=== PATIENT | female | born 1975 | race Two or more races ===

== ENCOUNTER 2022-10-04 09:52 | Outpatient (AMB) | payer OTHER, SELFPAY ==
[2022-10-04 10:09] VITALS: BP 110/72; PULSE 58; O2SAT 98; BMI 31.3
--- NOTE | 2022-10-04 10:09 | MHC.OFFVIS ---
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 Pt states she has seen a neurologist before. Official Court Reporter Required: No Allergies azithromycin Allergy (Unknown, Verified 10/04/22 10:12) Rash Medication List - Last Reconciled 10/04/22 by AGUEDA Florez cyanocobalamin (vitamin B-12) (Vitamin B-12) 2,500 mcg sublingual DAILY levonorgestrel (Mirena) intrauterine magnesium oxide 400 mg PO DAILY paroxetine HCl 10 mg PO QAM riboflavin (vitamin B2) 400 mg PO DAILY HPI HPI Comments History of Present Illness Details Right-handed 47-yr-old female presents for new pt evaluation of headache disorder, specifically migraine w/o aura. She has had headaches for about 9 years. For a time the migraine was constant, now frequent but not constant. She previously saw Dr Pisano, neurology, but has not seen him in years. Headache questionnaire: Preceding causes? None Previous work-up? MRI- after onset of migarine- normal per pt. Has had normal eye exams. Typical headache characteristics: Prodrome symptoms? None Aura? None Location, quality, characteristics? Starts behind her left eye, and then moves into the temples and back of the head. Pain can be throbbing. Her enck can be tight- makes her head feel like a bowling ball . Pain intensity? dull-severe Associated symptoms? photophobia, phonophobia, nausea, rarely vomiting, dizziness, brain fog, fatigue, ears feel blocked, triggers anxiety. Focal weakness, Parethesias, Autonomic s/s? congestion Postdrome? Unsure- almost always feels foggy and fatigued Triggers? stress, Any positional, valsalva, exertional, sexual activity triggers? none Menstrual triggers? none- has an IUD Time of day? Sometimes can wake up with headache Duration? A few days Frequency? 4 attacks in the past month- approx 12 days/mo How does headache impact your life? Has difficulty driving w/ migraine. Has to lay down. Has had to miss work at times. Current acute medication use/interventions: Tiny piece of CBD gummy- helps to relax her Previous acute medication use: Sumatriptan, Fioricet- ineffective. Current preventative medication use: B2 and Mag. Previous preventative medication use: Topiramate high dose- ineffective. Verapamil- ineffective. Tizanidine- did not help BAIRD. Venlafaxine- did not help (stopped 2 months ago- headaches did not increase) . Botox x's 3 sessions- ineffective Non-pharmacological interventions: Has done PT a few times. Other history of headache disorder? No other headcahe hx History of musculoskeletal disorders or injury? Has hx of neck surgery- since has only had neck pain w/ migraine. History of concussion/head injury? None History of mood disorder? anxiety and depression. History of sleep disorder? Not sleeping well. Has difficulty relaxing. Fragmented sleep. Tosses and turns. Endorses snoring, bruxism, some sleep talking. May have toe cramps. Tried melatonin last 2 nights- did not help. History of respiratory disease? None History of CV disease? None History of coagulopathy? None History of endocrine or metabolic disease? None History of seizure? None History of GI disorder? None. Denies constipation. Other? Feels memory is worse r/t the migraines Family planning? None Family history of migraine or other headache disorder? None PFSH Surgical History (Updated 10/04/22 @ 10:16 by Shweta Blackmon CMA) H/O spinal fusion Family History (Updated 10/04/22 @ 10:17 by Shweta Blackmon CMA) Father Cancer ADHD Mother Hypertension Sister Anxiety Child No Financial Resp ADHD Autism Anxiety Child No Financial Resp ADHD Social History (Updated 10/04/22 @ 10:18 by Shweta Blackmon CMA) Alcohol intake: current Alcohol intake frequency: holidays/special occasions only Patient Tobacco Use Status: Former Tobacco user e-Cigarette/Vaping Use: Currently Using Review of Systems Const Details: See scanned ROS form Physical Exam Vital Signs: Last Vital Signs Pulse 58 10/04/22 10:09 BP 110/72 10/04/22 10:09 Pulse Ox 98 10/04/22 10:09 Oxygen Delivery Method Room Air 10/04/22 10:09 BMI result Body Mass Index 31.3 Const Orientation/consciousness: patient oriented x3 HEENT Other: Mild palpable scalp tenderness. Head: Yes normocephalic Resp Effort & Inspection: normal respiratory effort and able to speak in complete sentences Back/Spine/Pelvis Other: Bilateral posterior cervical tightness. Cervical ROM: full Left Spurling: normal Right Spurling: normal. Neuro General: patient oriented x3 Cranial nerves: Yes CN's II-XII intact bilaterally Cognition (Neuro): normal cognition Gait exam (Neuro): Normal gait present Motor exam (neuro): 5/5 motor strength present throughout Deep tendon reflexes (DTR's): Right triceps reflex intensity grade: 2+, Left triceps reflex intensity grade: 2+, Rt Biceps (C5, C6): 2+, Left biceps reflex intensity grade: 2+, Right brachioradialis reflex intensity grade: 2+, Left brachioradialis reflex intensity grade: 2+, Right patellar reflex intensity grade: 2+ and Left patellar reflex intensity grade: 2+ Coordination: [id number] test normal, tandem gait normal and Romberg test negative Pupils: Normal pupillary reactivity/response: bilateral Psych Appearance: grossly normal Mental Status: mental status grossly normal Speech and movement: Normal speech and movement present Affect: normal affect Attitude: cooperative Thought process: Normal thought process present Assessment & Plan Assessment & Plan (1) Migraine without aura: Code(s): G43.009 - Migraine without aura, not intractable, without status migrainosus (2) Snoring: Code(s): R06.83 - Snoring (3) Excessive daytime sleepiness: Code(s): G47.19 - Other hypersomnia (4) Sleep difficulties: Code(s): G47.9 - Sleep disorder, unspecified Plan Pt advised to undergo HST to assess for sleep apnea. For overall headache management: Discussed importance of good self-care, including but not limited to maintaining a healthy diet, adequate fluid intake, adequate sleep, and engaging in regular physical activity. For headache triggers: Track headaches, especially after any treatment regimen changes. Migraine [employer] is one of many headache tracking apps. For acute headache treatment: Discussed importance of taking acute medications at the first sign of headache, however stressed importance of avoiding acute medication overuse (especially with combined headache medications). Trial Rizatriptan 10mg tab, 1/2 - 1 tab (5-10mg) at onset of headache, may repeat in 2 hours. Max of 2 tabs (200mg) per 24 hours. May adjunct with OTC Tylenol 650mg q 4 hours, Ibuprofen (liquigel) 600mg q 6 hours, or Naproxen (liquigel) 440mg q 12 hrs prn. Reviewed potential adverse effects of triptans, including but not limited to nausea, fatigue, chest tightness/tingling (usually passes within a few minutes), medication overuse headaches. Previous acute migraine medication trials: Sumatriptan, Fioricet- ineffective. Acute migraine medication contraindications: None at this time Future considerations: Sumatriptan inj For headache prevention medication: Discussed that preventative medications should be taken routinely as prescribed for best effect, it may take several weeks for full effect to take effect. Continue Riboflavin 400mg qam Continue Magnesium 400mg qhs Start Propranolol Er 60mg qhs. Reviewed potential adverse effects of betablockers, including but not limited to fatigue, hypotension, slow heart rate, mood changes, respiratory changes. Previous migraine prevention medication trials: Migraine prevention medication contraindications: None at this time Future considerations: CGRP MaB Information also given on non-pharmacological interventions, such as Cefaly or Nerivio neuromodulation devices. Pt to follow-up in 3 months or sooner prn. Orders: Orders RT home sleep study Today G47.19 - Other hypersomnia, G47.9 - Sleep disorder, unspecified, R06.83 - Snoring Medications: New rizatriptan max 2 tabs per day or 4 tabs per week 5 - 10 mg (0.5 - 1 x 10 mg) PO Q2H 21 days PRN 12 tabs 3RF migraine headache hydroxyzine HCl 25 mg PO BID PRN propranolol ER 60 mg PO BEDTIME 30 days 30 caps 6RF rizatriptan max 2 tabs per day or 4 tabs per week (may take w/ Ibuprofen) 5 - 10 mg (0.5 - 1 x 10 mg) PO Q2H 21 days PRN 12 tabs 3RF migraine headache Coding Level of Care Code New Pt Level 4 (53101) Diagnoses Migraine without aura G43.009 Snoring R06.83 Excessive daytime sleepiness G47.19 Sleep difficulties G47.9
== END 2022-10-04 11:26 | disposition home or self-care (01) ==
PROVIDERS: PCP Family Medicine; Visit Provider Nurse Practitioner Family
DX: G43.009 Migraine without aura, not intractable, without status migrainosus (principal); R06.83 Snoring; G47.19 Other hypersomnia; G47.9 Sleep disorder, unspecified
CPT/HCPCS: 99204

== ENCOUNTER → 2022-10-04 10:08 | Outpatient (BNVA) | payer OTHER, SELFPAY | PROVIDERS: PCP Family Medicine; Visit Provider Nurse Practitioner Family | DX: G43.009 Migraine without aura, not intractable, without status migrainosus (principal); G47.19 Other hypersomnia; G47.9 Sleep disorder, unspecified; R06.83 Snoring | CPT/HCPCS: 99202 ==

== ENCOUNTER → 2022-11-13 08:48 | Outpatient (REF) | payer OTHER, SELFPAY | LOC: HO.SL 08:48 | PROVIDERS: PCP Family Medicine; Visit Provider Nurse Practitioner Family | DX: G47.9 Sleep disorder, unspecified (principal); G47.19 Other hypersomnia; R06.83 Snoring | CPT/HCPCS: 95806 ==

== ENCOUNTER → 2022-11-13 09:04 | Outpatient (BNV) | payer OTHER, SELFPAY | PROVIDERS: PCP Family Medicine; Visit Provider Psychiatry & Neurology Neurology | DX: R06.83 Snoring (principal) | CPT/HCPCS: 95806 ==

== ENCOUNTER 2023-01-17 10:31 | Outpatient (AMB) | payer OTHER, SELFPAY ==
[2023-01-17 10:40] VITALS: BP 114/76; PULSE 78; O2SAT 97; BMI 32.9
--- NOTE | 2023-01-17 10:40 | MHC.OFFVIS ---
Intake Vital Signs 01/17/23 10:40 Height 5 ft Weight 168 lb 8 oz BMI 32.9 BP 114/76 Blood Pressure Location Rt brachial Position Sitting Pulse 78 Pulse Source Pulse Oximeter Pulse Oximetry (%) 97 Oxygen Delivery Method Room Air Intake Visit Reasons: 3m f/u migraines - LVM Intake Note: Pt presents to the office today for a 3 month follow up for migraines. Allergies azithromycin Allergy (Unknown, Verified 01/17/23 10:42) Rash Medication List - Last Reconciled 01/17/23 by AGUEDA Florez cyanocobalamin (vitamin B-12) (Vitamin B-12) 2,500 mcg sublingual DAILY hydroxyzine HCl 25 mg PO BID PRN levonorgestrel (Mirena) intrauterine magnesium oxide 400 mg PO DAILY paroxetine HCl 10 mg PO QAM HPI HPI Comments History of Present Illness Details 47-yr-old female presents for f/u visit. Pt denies any significant interval medical changes. She continues to have daily migraine. She is still prone to nasal/sinus congestion a/w headache, but not a/w green/yellow sputum, fever. Pt reports the Propranol Er 60mg was ineffective after 2 months, so she stopped it. The Rizatriptan was ineffective after trying a couple of times. PFSH Surgical History H/O spinal fusion Family History Father Cancer ADHD Mother Hypertension Sister Anxiety Child No Financial Resp ADHD Autism Anxiety Child No Financial Resp ADHD Social History Alcohol intake: current Alcohol intake frequency: holidays/special occasions only Patient Tobacco Use Status: Former Tobacco user e-Cigarette/Vaping Use: Currently Using Review of Systems Const All systems reviewed & are unremarkable except as noted in HPI and below Physical Exam Vital Signs: Last Vital Signs Pulse 78 01/17/23 10:40 BP 114/76 01/17/23 10:40 Pulse Ox 97 01/17/23 10:40 Oxygen Delivery Method Room Air 01/17/23 10:40 BMI result Body Mass Index 32.9 Const General: cooperative and no acute distress Orientation/consciousness: patient oriented x3 HEENT Head: Yes normocephalic Resp Effort & Inspection: normal respiratory effort and able to speak in complete sentences Neuro General: patient oriented x3, gait normal and CN's II-XI intact bilaterally Cognition (Neuro): normal cognition Motor exam (neuro): 5/5 motor strength present throughout Psych Appearance: grossly normal Mental Status: mental status grossly normal Speech and movement: Normal speech and movement present Affect: normal affect Attitude: cooperative Thought process: Normal thought process present Thought content: Normal thought content present Insight: Good insight present (Psych) Judgement: Good judgement present (Psych) Assessment & Plan Assessment & Plan (1) Migraine without aura: Code(s): G43.009 - Migraine without aura, not intractable, without status migrainosus (2) Sleep difficulties: Code(s): G47.9 - Sleep disorder, unspecified Plan HST- normal Pt may benefit from reading/listening to Say [facility] to Insomnia by Dr Jason Montez or similar CBTi resources. Reviewed migraine dx, pathophys- discussed that migraine can be a/w nasal/sinus congestion, rhinorhea, and other autonomic s/s. Pt advised to monitor response of her nasal/sinus s/s to her migraine tx and to notify us w/ any concerning changes in these s/s. ? For overall headache management: Discussed importance of good self-care, including but not limited to maintaining a healthy diet, adequate fluid intake, adequate sleep, and engaging in regular physical activity. For headache triggers: Track headaches, especially after any treatment regimen changes. Mig[employer] is one of many headache tracking apps. ? For acute headache treatment: Stop Rizatriptan 10mg tab, 1/2 - 1 tab (5-10mg) at onset of headache, may repeat in 2 hours. Max of 2 tabs (200mg) per 24 hours. Trial Eletriptan 40mg prn. May adjunct with gepant and/or OTC Tylenol 650mg q 4 hours, Ibuprofen (liquigel) 600mg q 6 hours, or Naproxen (liquigel) 440mg q 12 hrs prn. Trial Ubrelvy 50-100mg prn (max 200mg/day). Previous acute migraine medication trials: Sumatriptan- ineffective, Fioricet- ineffective. Rizatriptan- ineffective. Acute migraine medication contraindications: None at this time Future considerations: Sumatriptan inj ? For headache prevention medication: Discussed that preventative medications should be taken routinely as prescribed for best effect, it may take several weeks for full effect to take effect. Continue Riboflavin 400mg qam Continue Magnesium 400mg qhs Stop Propranolol Er 60mg qhs. Start Aimovig 140mg sc q month. Trial Nerivio neuromodulation device qod. Reviewed potential adverse effects of betablockers, including but not limited to fatigue, hypotension, slow heart rate, mood changes, respiratory changes. Previous migraine prevention medication trials: Topiramate high dose- ineffective. Verapamil- ineffective. Tizanidine- did not help BAIRD. Venlafaxine- did not help (stopped 2 months ago- headaches did not increase) . Botox x's 3 sessions- ineffective. Propranolol Er 60mg- ineffective after 2 months. Migraine prevention medication contraindications: None at this time ? ?Pt to follow-up in 1.5 months or sooner prn. Medications: New erenumab-aooe (Aimovig Autoinjector) 140 mg subcut ONCE 30 days 1 mL 6RF ubrogepant (Ubrelvy) take at onset of migraine, may repeat in 2hrs (may take w/ Ibuprofen or Triptan) 50 - 100 mg (0.5 - 1 x 100 mg) PO ONCE 30 days PRN 16 tabs 6RF migraine headache eletriptan take 1 tab at onset of headache; if no relief, may repeat 1 tab after at least 2 hrs; max = 2 tabs/24 hrs PO 30 days 12 tabs 6RF Coding Level of Care Code Est Pt Level 4 (51056) Diagnoses Migraine without aura G43.009 Sleep difficulties G47.9
== END 2023-01-17 11:30 | disposition home or self-care (01) ==
PROVIDERS: PCP Family Medicine; Visit Provider Nurse Practitioner Family
DX: G43.009 Migraine without aura, not intractable, without status migrainosus (principal); G47.9 Sleep disorder, unspecified
CPT/HCPCS: 99214

== ENCOUNTER → 2023-01-17 10:31 | Outpatient (BNVA) | payer OTHER, SELFPAY | PROVIDERS: PCP Family Medicine; Visit Provider Nurse Practitioner Family | DX: G43.009 Migraine without aura, not intractable, without status migrainosus (principal); G47.9 Sleep disorder, unspecified | CPT/HCPCS: 99212 ==

== ENCOUNTER 2023-02-28 07:46 | Outpatient (AMB) | payer OTHER, SELFPAY ==
--- NOTE | 2023-02-28 07:47 | MHC.OFFVIS ---
Intake Intake Visit Reasons: 6 wks [id number] Intake Note: Patient presents for follow up migraines my medication is not working Allergies azithromycin Allergy (Unknown, Verified 02/28/23 07:47) Rash Medication List - Last Reconciled 02/28/23 by AGUEDA Florez cyanocobalamin (vitamin B-12) (Vitamin B-12) 2,500 mcg sublingual DAILY eletriptan take 1 tab at onset of headache; if no relief, may repeat 1 tab after at least 2 hrs; max = 2 tabs/24 hrs PO 30 days erenumab-aooe (Aimovig Autoinjector) 140 mg subcut ONCE 30 days hydroxyzine HCl 25 mg PO BID PRN levonorgestrel (Mirena) intrauterine magnesium oxide 400 mg PO DAILY paroxetine HCl 30 mg PO QAM paroxetine HCl 30 mg PO QAM rimegepant (Nurtec ODT) 75 mg PO ONCE PRN 30 days MDD 1 tab ubrogepant (Ubrelvy) 50 - 100 mg (0.5 - 1 x 100 mg) PO ONCE PRN 30 days HPI HPI Comments History of Present Illness Details 47-yr-old female presents for f/u televideo visit via [employer] Pt denies any significant interval medical changes. For the past 1-1.5months, she has not been sleeping well- this is new for her, unsure what triggered this as she usually sleeps well. She reports difficulty initiating sleep, cannot sleep for hrs, then is just tossing and turning. Sometimes she is ruminating or trying to fall asleep. Takes 1 cup of coffee in early am, once in a while 1 extra cup at 2 pm. Hardly ever any alcohol use. Trying to exercise. When she gets into bed, she may watch TV or use her phone x's 10-15 minutes, then tries to sleep. She has had hot flashes for yrs- but not bothersome. She did have an increase in her paroxetine about 1-2 months from 20-30mg q 7 am. The headache is still constant, 2/. Has only become mroe severe a few times in past month. Tried both Eletriptan and Ubrelvy a few times, but not together- not effective. Started Aimovig- almost due for 2nd dose- not usre how much effect it has had. Baseline headache characteristics: Severe, dull pain, Starts behind her left eye, and then moves into the temples and back of the head. Pain can be throbbing. Her enck can be tight- makes her head feel like a bowling ball . A/e photophobia, phonophobia, nausea, rarely vomiting, dizziness, brain fog, fatigue, ears feel blocked, triggers anxiety, congestion PFSH Surgical History H/O spinal fusion Family History Father Cancer ADHD Mother Hypertension Sister Anxiety Child No Financial Resp ADHD Autism Anxiety Child No Financial Resp ADHD Social History Alcohol intake: current Alcohol intake frequency: holidays/special occasions only Patient Tobacco Use Status: Former Tobacco user e-Cigarette/Vaping Use: Currently Using Physical Exam Const General: cooperative and no acute distress Orientation/consciousness: patient oriented x3 Resp Effort & Inspection: normal respiratory effort and able to speak in complete sentences Neuro General: patient oriented x3 Cognition (Neuro): normal cognition Psych Appearance: grossly normal Mental Status: mental status grossly normal Speech and movement: Normal speech and movement present Affect: normal affect Attitude: cooperative Assessment & Plan Assessment & Plan (1) Migraine without aura: Code(s): G43.009 - Migraine without aura, not intractable, without status migrainosus (2) Sleep difficulties: Code(s): G47.9 - Sleep disorder, unspecified (3) Excessive daytime sleepiness: Code(s): G47.19 - Other hypersomnia Plan Pt may benefit from reading/listening to Say [facility] to Insomnia by Dr Jason Montez or similar CBTi resources- information shared w/ pt via portal. ? ? For overall headache management: Discussed importance of good self-care, including but not limited to maintaining a healthy diet, adequate fluid intake, adequate sleep, and engaging in regular physical activity. Track headaches. ? For acute headache treatment: Continue Eletriptan 40mg prn- trial adjuncting w/ gepant. Trial Nurtec ODT 75mg qd prn. When Nurtec available, Hold Ubrelvy 50-100mg prn. Previous acute migraine medication trials: Sumatriptan- ineffective, Fioricet- ineffective. Rizatriptan- ineffective. Acute migraine medication contraindications: None at this time Future considerations: Sumatriptan inj ? For headache prevention medication: Continue Riboflavin 400mg qam Continue Magnesium 400mg qhs Continue Aimovig 140mg sc q month. Trial Nerivio neuromodulation device qod. Reviewed potential adverse effects of betablockers, including but not limited to fatigue, hypotension, slow heart rate, mood changes, respiratory changes. Previous migraine prevention medication trials: Topiramate high dose- ineffective. Verapamil- ineffective. Tizanidine- did not help BAIRD. Venlafaxine- did not help (stopped 2 months ago- headaches did not increase) . Botox x's 3 sessions- ineffective. Propranolol Er 60mg- ineffective after 2 months. Migraine prevention medication contraindications: None at this time ? ? ?Pt send portal update prior to her 3rd dose of Aimovig, and follow-up in-clinic in 3 months or sooner prn. Medications: New rimegepant (Nurtec ODT) 75 mg PO ONCE 30 days PRN 16 tabs 3RF migraine headache MDD 1 tab Telehealth Telehealth Location of provider rendering services: practice address Location of patient: address on file Patient Identification confirmed using: Name, : Yes Telehealth method: video Patient verbally consented to treatment: Yes Patient verbally consented to billing insurance company: Yes Patient informed of any privacy concerns related to visit: Yes Minutes spent on Phone/Video with Pt.: 19 Coding Level of Care Code Tele Est Pt Level 4 (70114) Diagnoses Migraine without aura G43.009 Sleep difficulties G47.9 Excessive daytime sleepiness G47.19
== END 2023-02-28 15:22 | disposition home or self-care (01) ==
LOC: HO.HSMS 07:46
PROVIDERS: PCP Family Medicine; Visit Provider Nurse Practitioner Family
DX: G43.009 Migraine without aura, not intractable, without status migrainosus (principal); G47.9 Sleep disorder, unspecified; G47.19 Other hypersomnia
CPT/HCPCS: 99214

== ENCOUNTER → 2023-02-28 07:46 | Outpatient (BNVA) | payer OTHER, SELFPAY | PROVIDERS: PCP Family Medicine; Visit Provider Nurse Practitioner Family ==

== ENCOUNTER 2024-06-11 09:22 | Outpatient (AMB) | payer OTHER, SELFPAY ==
[2024-06-11 09:25] VITALS: BP 120/76; PULSE 71; O2SAT 96; BMI 35.7
--- NOTE | 2024-06-11 09:25 | MHC.OFFVIS ---
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 Pt reports her sleep has been horrendous - difficulty to fall asleep, stay asleep, and tossing and turning, snoring, daytime sleepiness, hot flashes- though a bit better in the last 1-2 weeks. Her OB tried her on Gabapentin 300mg-600mg without effect. Previous HST was inconclusive. She states she has not had a severe migraine in several months. Occasionally may have a low grade headache, a bifrontal/sinus headache not a/w photo/phonophobia or N/V, or may wake up with a low grade headache. States has a family history of sinus infections. She stopped aimovig after 3 months- felt it was ineffective. 02/28/2023, HPI: Pt denies any significant interval medical changes. For the past 1-1.5months, she has not been sleeping well- this is new for her, unsure what triggered this as she usually sleeps well. She reports difficulty initiating sleep, cannot sleep for hrs, then is just tossing and turning. Sometimes she is ruminating or trying to fall asleep. Takes 1 cup of coffee in early am, once in a while 1 extra cup at 2 pm. Hardly ever any alcohol use. Trying to exercise. When she gets into bed, she may watch TV or use her phone x's 10-15 minutes, then tries to sleep. She has had hot flashes for yrs- but not bothersome. She did have an increase in her paroxetine about 1-2 months from 20-30mg q 7 am. The headache is still constant, 2/. Has only become mroe severe a few times in past month. Tried both Eletriptan and Ubrelvy a few times, but not together- not effective. Started Aimovig- almost due for 2nd dose- not usre how much effect it has had. Baseline headache characteristics: Severe, dull pain, Starts behind her left eye, and then moves into the temples and back of the head. Pain can be throbbing. Her enck can be tight- makes her head feel like a bowling ball . A/e photophobia, phonophobia, nausea, rarely vomiting, dizziness, brain fog, fatigue, ears feel blocked, triggers anxiety, congestion PFSH Surgical History H/O spinal fusion Family History Father Cancer ADHD Mother Hypertension Sister Anxiety Child No Financial Resp ADHD Autism Anxiety Child No Financial Resp ADHD Social History Alcohol intake: current Alcohol intake frequency: holidays/special occasions only Patient Tobacco Use Status: Former Tobacco user e-Cigarette/Vaping Use: Currently Using Physical Exam Vital Signs: Last Vital Signs Pulse 71 06/11/24 09:25 BP 120/76 06/11/24 09:25 Pulse Ox 96 06/11/24 09:25 Oxygen Delivery Method Room Air 06/11/24 09:25 BMI result Body Mass Index 35.7 Const General: cooperative and no acute distress Orientation/consciousness: patient oriented x3 Resp Effort & Inspection: normal respiratory effort and able to speak in complete sentences Neuro General: patient oriented x3 Cognition (Neuro): normal cognition Psych Appearance: grossly normal Mental Status: mental status grossly normal Speech and movement: Normal speech and movement present Affect: normal affect Attitude: cooperative Assessment & Plan Assessment & Plan (1) Snoring: Code(s): R06.83 - Snoring Category: Medical (2) Excessive daytime sleepiness: Code(s): G47.19 - Other hypersomnia Category: Medical (3) Sleep difficulties: Code(s): G47.9 - Sleep disorder, unspecified Category: Medical (4) Migraine without aura: Code(s): G43.009 - Migraine without aura, not intractable, without status migrainosus Category: Medical Plan For sleep difficulties: Pt advised to undergo in-lab sleep study to assess for sleep apnea and PLMS. ? ? For overall headache management: Discussed importance of good self-care, including but not limited to maintaining a healthy diet, adequate fluid intake, adequate sleep, and engaging in regular physical activity. Track headaches. May try nedi-pot (ceramic pot) saline rinses. ? For acute headache treatment: OTC Tylenol 650-1,000mg every 4-6 hours, Ibuprofen (liquid gels) 600mg every 6 hours, or Naproxen (liquid gels) 440mg q 12 hrs prn. Previous acute migraine medication trials: Sumatriptan- ineffective, Fioricet- ineffective. Rizatriptan- ineffective. Nurtec and Ubrelvy- ineffective. eletriptan- ineffective. Acute migraine medication contraindications: None at this time Future considerations: Sumatriptan inj ? For headache prevention medication: Continue Magnesium 400mg qhs Previous migraine prevention medication trials: Topiramate high dose- ineffective. Verapamil- ineffective. Tizanidine- did not help BAIRD. Venlafaxine- did not help (stopped 2 months ago- headaches did not increase) . Botox x's 3 sessions- ineffective. Propranolol Er 60mg- ineffective after 2 months. Aimovig- ineffective Migraine prevention medication contraindications: None at this time ? Will follow-up upon review of above and patient to follow-up in clinic in 6 months or sooner prn. Orders: Orders RT PSG in-lab sleep study Today G43.009 - Migraine without aura, not intractable, without status migrainosus, G47.19 - Other hypersomnia, G47.9 - Sleep disorder, unspecified, R06.83 - Snoring Scribe Plan - Not visible on output: Reviewed possible medication side effects, including but not limited to drowsiness, dizziness. Coding Level of Care Code Est Pt Level 4 (99822) Diagnoses Snoring R06.83 Excessive daytime sleepiness G47.19 Sleep difficulties G47.9 Migraine without aura G43.009 Ronks Sleepiness Scale Questions Sitting and reading: moderate chance of dozing Watching TV: moderate chance of dozing Sitting inactive in a theater, movie etc.: would never doze As a passenger in a car for an hour without break: would never doze Lying down in the afternoon when circumstances permit: high chance of dozing Sitting and talking to someone: would never doze Sitting quietly after lunch without alcohol: high chance of dozing In a car, while stopped for a few minutes in the traffic: would never doze ESS < 10: normal, ESS > 12: pathologic: 10
--- OUTSIDE RECORDS SUMMARY | 2024-06-11 10:15 | XMS_ITS | Clinical Summary ---
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 Medications IBU 600 mg tablet Take 1 tablet (600 mg total) by mouth every 6 (six) hours if needed. 2023 Active PARoxetine (PAXIL) 40 mg tabletIndicatio ns:Anxiety with depression Take 1 tablet (40 mg total) by mouth 1 (one) time each day in the morning. 90 tablet 1 01/10/2024 5 Active hydrOXYzine HCL (ATARAX) 25 mg tabletIndicatio ns:Primary insomnia Take 1 tablet (25 mg total) by mouth at bedtime as needed for anxiety (sleep). 90 tablet 1 01/10/2024 Active amoxicillin-cla vulanate (AUGMENTIN) 875-125 mg per tablet Take 1 tablet by mouth 2 (two) times a day. 14 each 04/15/2024 Active gabapentin (NEURONTIN) 600 mg tabletIndicatio ns:Primary insomnia,Menopa usal hot flushes Take 1 tablet (600 mg total) by mouth at bedtime. 90 each 05/20/2024 5 Active Active Problems Problem Noted Date Diagnosed Date Menopausal hot flushes 05/20/2024 H/O benign breast biopsy 02/10/2024 Overview (02/10/2024): Breast, Right, posterior outer breast calcifications; core biopsy (minicork clip): Papillary cystic apocrine metaplasia and columnar cell change associated with calcifications. No atypia or neoplasia identified. Primary insomnia 01/10/2024 Assessment & Plan (01/10/2024 9:52 AM EST): Reports gabapentin has not been working for her perimenopausal symptoms or for insomnia Provided with information on how to wean off the gabapentin. Advised to start hydroxyzine 25 mg nightly as needed Orders: hydrOXYzine HCL (ATARAX) 25 mg tablet; Take 1 tablet (25 mg total) by mouth at bedtime as needed for anxiety (sleep). Mixed hyperlipidemia 03/22/2023 Assessment & Plan (01/10/2024 9:52 AM EST): Will update labs Orders: Comprehensive metabolic panel; Future Lipid panel with reflex to direct LDL; Future Vaping nicotine dependence, tobacco product 03/2023 Class 1 obesity 12/26/2021 Assessment & Plan (01/10/2024 9:52 AM EST): Exercise encouraged Orders: Ambulatory referral to Sleep Medicine; Future Intractable episodic cluster headache 08/11/2021 Abnormal laboratory test result 12/29/2019 Overview (12/31/2023): Non-protective pneumococcal titers. Patient advised to receive Pneumovax 23 and repeat vaccine titers 4 weeks after to help in immunology evaluation Recurrent sinus infections 12/15/2019 Anxiety with depression 09/25/2017 Assessment & Plan (01/10/2024 9:52 AM EST): Will increase paroxetine to 40mg daily Provided with information on how to wean off the Wellbutrin. Orders: PARoxetine (PAXIL) 40 mg tablet; Take 1 tablet (40 mg total) by mouth 1 (one) time each day in the morning. Migraine without status migrainosus, not intract able 07/19/2016 Overview (12/31/2023): Vs Tension type headaches Dr Mace Tried Topamax without improvement, nerve blocks and PT no benefit, rx'd trial of propranolol Oct 2019 Assessment & Plan (01/10/2024 9:52 AM EST): Currently well-controlled. Has appointment with her neurologist in April. Cervical spondylosis with radiculopathy 05/09/19 16 Overview (12/31/2023): Last Assessment & Plan: Ms. Husain is here for 1 year follow-up after C5-6, C6-7 ACDF with plating on 01/25/2022. She feels well, has great range of motion of the cervical spine and no pain, paresthesias or weakness in her arms. For this she is very happy. She continues to have migraines and at their worst, she will feel some neck stiffness. On exam, cervical rotation is greater than 60 degrees bilaterally, strength 5/5, sensation light touch intact, gait is steady. Review of the AP/lateral and flexion/extension x-rays from today show the plate and screws to be in stable position, she has normal alignment and no instability at any level. It appears that the bone grafts have somewhat resorbed, this is not the typical solid fusion. As she is asymptomatic though, there is nothing to do about it. She has no restrictions on her activities and is welcome to follow-up with us if she has any issues in the future. Papanicolaou smear of cervix with atypical squamous cells cannot exclude high grade squamous intraepithelial lesion (ASC-H) 05/03/2011 Chronic seasonal allergic rhinitis 06/28/2009 Encounters Date Type Department Care Team Description 05/20/2024 Telephone Adult Medicine [address] [phone] Aroldo Carter MD 04/15/2024 8:30 AM EST Office Visit Adult Medicine [address] [phone] Momo Reyes MD Acute non-recurrent maxillary sinusitis (Primary Dx); Sore throat 04/14/2024 Telephone Adult Medicine [address] [phone] Aroldo Carter MD Sore Throat from Last 3 Months Immunizations Name Administration Dates Next Due Influenza Quadravalent, MDCK , 0.5ml, preservative free (Flucelvax) 6mo and older 11/19/2022,11/02/2021,02/03/2021,11/20,10/11/2018 Influenza trivalent, 0.5mL, preservative free (Fluarix; FluLaval; Fluzone) ages 6mo and older (Afluria) 3 years and older 12/07/2017,12/15/2013,11/03/2010,12/09 Influenza trivalent, MDCK, 0 .5mL, preservative free (Flucelvax) 6mo and older 01/10/2024 Pfizer (ages 12 & older) Biv alent, COVID-19 04/12/2022 Pfizer SARS-CoV-2 COVID-19, mRNA, LNP-S, preservative free 05/16/2020,04/25/2020 Pneumococcal polysaccharide 23 valent (Pneumovax 23) 2yo and older 01/15/2020 Td Tetanus diptheria (Tdvax) 7yo and older 09/26/2020 Tdap Tetanus diptheria acell ular pertussis (Boostrix; Adacel) 7yo and older 12/22/2008 Surgical History Surgery Date Site/Laterality Comments CERVICAL BIOPSY W/ LOOP ELECTRODE EXCISION 02/2012 PROCEDURE: KS CONIZATION CERVIX W/WO D&C RPR ELTRD EXC; COMMENT: CARMELO 2 with clear margins OTHER SURGICAL HISTORY 1993 PROCEDURE: KS DILATION & CURETTAGE DX&/THER NONOBSTETRIC; COMMENT: for miscarriage NECK SURGERY 01/25/2022 PROCEDURE: HISTORICAL NECK SURGERY; COMMENT: By Dr. Ninfa Saldaña STEREOTACTIC BREAST BIOPSY (RIGHT) Right neg Medical History Medical History Date Comments Tobacco abuse 03/26/2007 DX:Tobacco abuse Historical Medical DX DX:HPV (hu man papillomavirus); COMMENT: before 1999, again in 2011 Other specified personal his tory presenting hazards to health(V15.89) 2001, 2012 DX:Other specifie d personal history presenting hazards to health(V15.89); COMMENT: CARMELO II Fibroadenoma of breast deter mined by biopsy 2018 DX:Fibroadenoma of breast de termined by biopsy Family History Medical History Relation Name Comments Esophageal cancer Father Hyperlipidemia Mother Hypertension Mother Blindness Neg Hx Breast cancer Neg Hx Cataracts Neg Hx Colon cancer Neg Hx Glaucoma Neg Hx Macular degeneration Neg Hx Ovarian cancer Neg Hx Strabismus Neg Hx Relation Name Status Comments Father Mother Alive Social History Tobacco Use Types Packs/Day Years Used Date Smoking Tobacco: Light Smoker Smokeless Tobacco: Never Alcohol Use Standard Drinks/Week Comments Yes 0 (1 standard drink = 0.6 oz pur e alcohol) Housing Instability Answer Date Recorde d Are you worried that in the next 2 months you may not have stable housing? No 04/08/2024 Food Access & Nutrition Answer Date Rec orded Do you have access to a vari ety of food including fruits and vegetables? Yes 04/08/2024 Health Literacy Answer Date Recorded How often do you need to hav e someone help you when you read instructions, pamphlets, or other written material from your doctor or pharmacy? Never 04/08/2024 Caregiver: How often do you need to have someone help you when you read instructions, pamphlets, or other written material from your doctor or pharmacy? Not on file 04/08/2024 Financial Risk Answer Date Recorded How hard is it for you to pa y for the very basics like food, housing, medical care, and air conditioning / heating? Hard 04/08/2024 Transportation Answer Date Recorded Has the lack of transportati on kept you from meetings, work, or from getting things needed for daily living? No Has the lack of transportati on kept you from medical appointments or from getting medications? No 04/08/2024 Social Isolation Answer Date Recorded How often do you feel lonely or isolated from those around you? Sometimes 04/08/2024 Food Risk Answer Date Recorded Within the past 12 months we worried whether our food would run out before we got money to buy more. Never true 04/08/2024 Within the past 12 months th e food we bought just didn't last and we didn't have money to get more. Never true 04/08/2024 Dependent Care Answer Date Recorded Do you need help finding or paying for care for your loved ones. For example, childcare director or elderly care for an older adult? Patient declined 04/08/2024 Education Answer Date Recorded Do you think completing more education or training, like finishing a GED, going to college, or learning a trade, would be helpful for you? Yes 04/08/2024 Employment and Income Answer Date Recor ded During the last four weeks, have you been actively looking for work? No 04/08/2024 Living Situation Answer Date Recorded What is your living situation? 0 04/08/2024 Comments Unknown Sex and Gender Information Value Date Recorded Sex Assigned at Not on file Legal Sex Female 1:08 AM EST Gender Identity Not on file Sexual Orientation Not on file Obstetrics History Para Term AB IAB SAB Ectopic Multiple Livin g Live Births 2 2 2 2 Date Outcome GA Total Labor Labor/2nd/3rd Weight Sex Type Anes PTL Velia A1 A5 Name Clin Term Term Last Filed Vital Signs Vital Sign Reading Time Taken Comments Blood Pressure 110/70 04/15/2024 8:23 AM EST Pulse 77 04/15/2024 8:23 AM EST Temperature 36.7 ??C (98 ??F) 04/15/2024 8:23 AM EST Respiratory Rate 18 04/15/2024 8:23 AM EST Oxygen Saturation 98% 01/10/2024 8:37 AM EST Inhaled Oxygen Concentration - - Weight 84.8 kg (187 lb) 04/15/2024 8:23 AM EST Height 152.4 cm (5') 04/15/2024 8:23 AM EST Body Mass Index 36.52 04/15/2024 8:23 AM EST Plan of Treatment Upcoming Encounters Date Type Department Care Team (Late st Contact Info) Description 07/03/2024 10:00 AM EDT Office Visit Adult Medicine [facility] - [address] [phone] Brenda Padilla PA [address] [place] [phone] 07/22/2024 9:20 AM EDT Appointment Radiology Department - [address] [phone] 07/27/2024 11:15 AM EDT Office Visit Obstetrics and Gynecology - [facility] [address] [facility] [place] [phone] Carley Barrera, CN [address] [facility] [place] [address] Health Maintenance Due Date Last Done Comments Hepatitis B Vaccines (1 of 3 - 19+ 3-dose series) 07/17/1995 Pneumococcal Vaccine: Pediatrics (0 to 5 Years) and At-Risk Patients (6 to 64 Years) (2 of 2 - PCV) 01/14/2021 01/15/2020 Colorectal Cancer Screening: Colonoscopy 01/21/2022 HIV Screening 01/21/2022 Cervical Cancer Screening: Pap Smear 01/03/2023 01/04/2020 COVID-19 Vaccine ( season) 2023 04/12/2022, 05/06/2021, 05/16/2020, Additional history exists Depression Screening 04/08/2025 04/08/2024 Social Influencers of Health Screening 04/08/2025 04/08/2024 Breast Cancer Screening 01/09/2026 01/10/20 24, 03/01/2022, 02/20/2021, Additional history exists Cholesterol Screening (Lipid Panel) 04/14/2029 04/14/2024 DTaP,Tdap,and Td Vaccines (3 - Td or Tdap) 09/26/2030 09/26/2020, 12/22/2008 Influenza Vaccine Completed 01/10/2024, , 11/02/2021, Additional history exists Hepatitis C Screening Completed 04/14/2024 HIB Vaccines Aged Out No longer eligi ble based on patient's age to complete this topic HPV Vaccines Aged Out No longer eligi ble based on patient's age to complete this topic Hepatitis A Vaccines Aged Out No long er eligible based on patient's age to complete this topic IPV Vaccines Aged Out No longer eligi ble based on patient's age to complete this topic MMR Vaccines Aged Out No longer eligi ble based on patient's age to complete this topic Meningococcal ACWY Vaccine Aged Out N o longer eligible based on patient's age to complete this topic Meningococcal B Vaccine Aged Out No l onger eligible based on patient's age to complete this topic RSV Immunization Patients Under 20 months Aged Out No longer eligible based on patient's age to complete this topic Varicella Vaccines Aged Out No longer eligible based on patient's age to complete this topic Procedures Procedure Name Priority Date/Time Associated Diagnosis Comments HEPATITIS C ANTIBODY Routine 04/14/2024 8:34 AM EST Need for hepatitis C screening test COMPREHENSIVE METABOLIC PANEL Routine 04/14/2024 8:34 AM EST Mixed hyperlipidemia LIPID PANEL WITH REFLEX TO DIRECT LDL Routine 04/14/2024 8:34 AM EST Mixed hyperlipidemia MG MAMMO DIGITAL SCREENING W CARLOS BILAT Routine 01/10/2024 10:16 AM EST Encounter for screening mammogram for malignant neoplasm of breast PAP SMEAR Routine 01/04/2020 from Last 3 Months or Most Recently Relevant to Health Maintenance Results * Hepatitis C antibody (04/14/2024 8:34 AM EST) Pathologist [facility] Hepatitis C Antibody Negative Negative LAB CHEMISTRY METHOD 04/14/2024 5:10 PM EST [facility] Blood Venous blood specimen / Unknown Venipuncture / Unknown 04/14/2024 8:34 AM EST 04/14/2024 8:34 AM EST us Aroldo Carter MD LAB BLOOD ORDERA BLES Final Result [facility] [address] [place] [address], [place] [phone] * (ABNORMAL) Lipid panel with reflex to direct LDL (04/14/2024 8:34 AM EST) Cholesterol 207(H) 0 - 200 mg/dL LAB CHEMISTRY METHOD 04/14/2024 10:36 AM EST [facility] Triglycerides 139 0 - 150 mg/dL LAB CHEMISTRY METHOD 04/14/2024 10:36 AM EST [facility] HDL 45 >=40 mg/dL LAB CHEMISTRY METHOD 04/14/2024 10:36 AM [facility] LDL Calculated 134(H) 0 - 100 mg/dL LAB CHEMISTRY METHOD 04/14/2024 10:36 AM [facility] VLDL Cholesterol Wes 27.8 mg/dL LAB CHEMISTRY METHOD 04/14/2024 10:36 AM [facility] Non HDL Chol. (LDL+VLDL) 162(H) <145 mg/dL LAB CHEMISTRY METHOD 04/14/2024 10:36 AM [facility] Chol/HDL Ratio 4.6(H) 0.0 - 4.4 LAB CHEMISTRY METHOD 04/14/2024 10:36 AM [facility] Blood Venous blood specimen / Unknown Venipuncture / Unknown 04/14/2024 8:34 AM EST 04/14/2024 8:34 AM EST Aroldo Carter MD LAB BLOOD ORDERA BLES Final Result [facility] [address] [place] [address], * (ABNORMAL) Comprehensive metabolic panel (04/14/2024 8:34 AM EST) Sodium 139 133 - 145 mmol/L LAB CHEMISTRY METHOD 04/14/2024 10:36 AM EST [facility] Potassium 4.5 3.5 - 5.5 mmol/L LAB CHEMISTRY METHOD 04/14/2024 10:36 AM [facility] Chloride 107 96 - 110 mmol/L LAB CHEMISTRY METHOD 04/14/2024 10:36 AM [facility] CO2 25 21 - 32 mmol/L LAB CHEMISTRY METHOD 04/14/2024 10:36 AM [facility] Anion Gap 7 3 - 11 LAB CHEMISTRY METHOD 04/14/2024 10:36 AM [facility] Glucose 106(H) 70 - 100 mg/dL LAB CHEMISTRY METHOD 04/14/2024 10:36 AM [facility] BUN 9 5 - 25 mg/dL LAB CHEMISTRY METHOD 04/14/2024 10:36 AM [facility] Creatinine 0.62 0.50 - 1.10 mg/dL LAB CHEMISTRY METHOD 04/14/2024 10:36 AM [facility] eGFR 111 >=60 mL/min/1. 73m2 LAB CHEMISTRY METHOD 04/14/2024 10:36 AM [facility] Comment:Calculation based on the??Chronic Kidney Disease Epidemiology Collaboration (CKD-EPI) equation refit??without adjustment for race. BUN/Creatinine Ratio 14.5 LAB CHEMISTRY METHOD 04/14/2024 10:36 AM [facility] Calcium 9.1 8.5 - 10.5 mg/dL LAB CHEMISTRY METHOD 04/14/2024 10:36 AM [facility] AST (SGOT) 27 10 - 42 unit/L LAB CHEMISTRY METHOD 04/14/2024 10:36 AM [facility] ALT (SGPT) 51 10 - 60 unit/L LAB CHEMISTRY METHOD 04/14/2024 10:36 AM [facility] Alkaline Phosphatase 85 42 - 121 unit/L LAB CHEMISTRY METHOD 04/14/2024 10:36 AM [facility] Total Protein 7.0 6.0 - 8.0 g/dL LAB CHEMISTRY METHOD 04/14/2024 10:36 AM [facility] Albumin 3.7 3.2 - 5.0 g/dL LAB CHEMISTRY METHOD 04/14/2024 10:36 AM [facility] Total Bilirubin 0.3 0.0 - 1.4 mg/dL LAB CHEMISTRY METHOD 04/14/2024 10:36 AM EST [facility] Blood Venous blood specimen / Unknown Venipuncture / Unknown 04/14/2024 8:34 AM EST 04/14/2024 8:34 AM EST Aroldo Carter MD LAB BLOOD ORDERA BLES Final Result [facility] [address] [place] [address], * (ABNORMAL) MG Mammo Digital Screening w Carlos bilat (01/10/2024 10:16 AM EST) Anatomical Region Laterality Modality Breast Bilateral Mammography 01/10/2024 1:31 PM EST Impressions 01/10/2024 1:33 PM EST New cluster of microcalcifications outer right breast as described. ??Magnification views of the right breast in the CC, MLO, and ML projections are suggested. ?? New clusters of microcalcifications outer left breast. ??Magnification views of the left breast in the CC, MLO and ML projections are suggested. The patient will be contacted by the radiology department to arrange for the additional imaging and BI-RADS: 0-incomplete: Additional imaging evaluation needed RECOMMENDATION(S): Magnification views bilateral breasts. 1: Magnification views of both breasts . Mammo Location: [facility], [address] [place] [address], [phone], . Mammo Location: [facility], [address] [place] [address], [phone], . -------- FINAL REPORT -------- Dictated By: Laure Muller Dictated Date: 01/10/2024 13:31 ET Assigned Physician: Laure Muller Reviewed and Electronically Signed By: Laure Muller Signed Date: 01/10/2024 13:33 ET Workstation ID: [id number] Transcribed By: Self Edit Transcribed Date: 01/10/2024 13:31 ET Narrative 01/10/2024 1:33 PM EST EXAM: MAMMO DIGITAL SCREENING W CARLOS BILAT EXAM DATE: 01/10/2024 10:08 AM HISTORY: ??Breast cancer screen, avg risk, asymptomatic (Age => 40y) COMPARISON: Mammogram 09/11/2018. TECHNIQUE: Bilateral digital breast tomosynthesis was performed in the CC and MLO projections. Computer aided detection with iCAD ProFound AI 3D 3.1 was employed. TISSUE DENSITY: c. ??The breasts are heterogeneously dense. FINDINGS: No suspicious masses or areas of architectural distortion are seen. The skin and vascularity are unremarkable. There is a new cluster of microcalcifications in the posterior outer right breast. There are 2 new clusters of microcalcifications in the outer left breast. There is a nodule with associated microclip in the upper outer right breast. Procedure Note Laure Muller MD - 01/10/2024 EXAM: MAMMO DIGITAL SCREENING W CARLOS BILAT EXAM DATE: 01/10/2024 10:08 AM HISTORY: Breast cancer screen, avg risk, asymptomatic (Age => 40y) COMPARISON: Mammogram 09/11/2018. TECHNIQUE: Bilateral digital breast tomosynthesis was performed in the CCand MLO projections. Computer aided detection with iCAD ProFound AI 3D 3.1was employed. TISSUE DENSITY: c. The breasts are heterogeneously dense. FINDINGS: No suspicious masses or areas of architectural distortion are seen. Theskin and vascularity are unremarkable. There is a new cluster of microcalcifications in the posterior outer rightbreast. There are 2 new clusters of microcalcifications in the outer leftbreast. There is a nodule with associated microclip in the upper outer rightbreast. IMPRESSION: New cluster of microcalcifications outer right breast as described.Magnification views of the right breast in the CC, MLO, and ML projectionsare suggested. New clusters of microcalcifications outer left breast. Magnificationviews of the left breast in the CC, MLO and ML projections aresuggested. The patient will be contacted by the radiology department to arrange forthe additional imaging and BI-RADS: 0-incomplete: Additional imaging evaluation needed RECOMMENDATION(S): Magnification views bilateral breasts. 1: Magnification views of both breasts . Mammo Location: [facility], [address] [place] [address], [phone], . Mammo Location: [facility], [address] [place] [address], [phone], . -------- FINAL REPORT -------- Dictated By: Laure Muller Dictated Date: 01/10/2024 13:31 ET Assigned Physician: Laure Muller Reviewed and Electronically Signed By: Laure Muller Signed Date: 01/10/2024 13:33 ET Workstation ID: [id number] Transcribed By: Self Edit Transcribed Date: 01/10/2024 13:31 ET Aroldo Carter MD IMG BI PROCEDURE S Final Result * Pap smear (01/04/2020) 01/04/2020 Narrative HISTORICAL TESTING LAB RESULTING AGENCY - 01/11/2020 12:21 PM EST [id number] THINPREP PAP, IMAGED: NEGATIVE FOR SQUAMOUS INTRAEPITHELIAL LESION AND MALIGNANCY . REACTIVE CELLULAR CHANGES. BRANT SMITH , LACHELLE(ASCP) (CASE SCREENED 01 08 2020) NAHEED MATOS M.D. , PATHOLOGIST (CASE ELECTRONICALLY SIGNED 01 08 2020) RESULT OF APTIMA HIGH RISK HPV ASSAY: HIGH RISK HPV: ??NEGATIVE (SEROTYPES 16,18,31,33,35,39,45,51,52,56,58,59,66,68) COMPLETED ON 2020-01-06 ADEQUACY: SATISFACTORY ENDOCERVICAL/TRANSFORMATION ZONE COMPONENT PRESENT. SOURCE: THINPREP PAP HPV ANY DX: ??REFLEX 16 AND 18, CERVICAL, IMAGED CLINICAL INFORMATION: HPV ANY DIAGNOSIS. 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 Expl anation Health Care Decision (hx) 02/28/2011 AD MONREAL DIRECTIVE Health Care Decision (hx) 02/28/2011 AD MONREAL DIRECTIVE Health Care Decision (hx) 02/28/2011 AD MONREAL DIRECTIVE Health Care Decision (hx) 02/28/2011 AD MONREAL DIRECTIVE Health Care Decision (hx) 02/28/2011 AD MONREAL DIRECTIVE Health Care Decision (hx) 02/28/2011 AD MONREAL DIRECTIVE Health Care Decision (hx) 02/28/2011 AD MONREAL DIRECTIVE Health Care Decision (hx) 02/28/2011 AD MONREAL DIRECTIVE 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
== END 2024-06-11 10:11 | disposition home or self-care (01) ==
LOC: HO.HSMS 09:22
PROVIDERS: PCP Family Medicine; Visit Provider Nurse Practitioner Family
DX: R06.83 Snoring (principal); G47.19 Other hypersomnia; G47.9 Sleep disorder, unspecified; G43.009 Migraine without aura, not intractable, without status migrainosus
CPT/HCPCS: 99214

== ENCOUNTER → 2024-06-11 09:22 | Outpatient (BNVA) | payer OTHER, SELFPAY | PROVIDERS: PCP Family Medicine; Visit Provider Nurse Practitioner Family | DX: G47.19 Other hypersomnia (principal); G47.9 Sleep disorder, unspecified; R06.83 Snoring; G43.009 Migraine without aura, not intractable, without status migrainosus | CPT/HCPCS: 99212 ==

== ENCOUNTER 2024-12-15 08:26 | Outpatient (REF) | payer OTHER, SELFPAY ==
--- OUTSIDE RECORDS SUMMARY | 2024-12-15 11:02 | XMS_ITS | Data Portability ---
Author Organization [facility], [facility] Address [address] [place] [address] Care Team Providers Care Funeral Service Manager Name Role Phone [email or web address] Primary Care Provider [phone] Assessment No assessment recorded. Plan of Treatment Reminders Order Date Submit Date Provider Last Modified By Organization Details Last Modified Time Details Appointments None record ed. Lab None record ed. Referral None record ed. Procedures None record ed. Surgeries None record ed. Imaging None record ed. Medication Orders None record ed. Patient TargetsNo targets recorded. Patient InstructionsNo instructions recorded. Reason for Referral None Reported. Results Created Date Observation Date Name Description Value Unit Range Abnormal Flag Note LastModifiedBy Organization Detail LastModifiedTime 10/18/19 24 09/03/2022 imagi ng/di agnos tic resul t No observ ation record ed. [email or web address] Not Available 09/20 01:51:30 Result Notes None recorded. Procedures Surgical History Date Name Laterality Status Provider Name and Address Organization Details Recorded Time 4 Small Joint Kenalog Injection, L/R completed Elan Freeman PA-C [address], [place], [address], [facility] 05/29/2023 09:42:31 Imaging Results None recorded. Procedure Notes None recorded. Medical Equipment None Reported. Allergies Allergen ID Allergen Name Allergen Category Reaction Reaction Severity Criticality Documentation Date Start Date Code Code System Note Provider Name and Address Organization Details Recorded Time 443071 ethinyl estradiol / levonorge strel medicatio n Not available Not available Not available 05/29/2023 93556 8 RxNorm GUNNAR pineda [facility] 4 09:16:50 66442 azithromy nicolás medicatio n Not available Not available Not available 04/22/20232022 00339 RxNorm Not Available [facility] 4 13:27:39 Medications Name Sig Start Date Stop Date Status Note LastModified by Organization Details LastModified Time bupropion HCl SR 150 mg tablet,12 hr sustained-r elease TAKE ONE TABLET BY MOUTH EVERY DAY 05/28 completed Not Available Not Available Not Available prednisone 10 mg tablet TAKE FOUR TABLETS BY MOUTH EVERY DAY FOR 3 DAYS THEN TAKE THREE TABLETS BY MOUTH EVERY DAY FOR 3 DAYS THEN TAKE TWO TABLETS BY MOUTH EVERY D 05/28 completed Not Available Not Available Not Available venlafaxine ER 75 mg capsule,ext ended release 24 hr TAKE ONE CAPSULE BY MOUTH EVERY OTHER DAY AND THEN STOP 05/28 completed Not Available Not Available Not Available paroxetine 10 mg tablet TAKE ONE TABLET BY MOUTH EVERY MORNING active Not Available Not Available No t Available fluconazole 150 mg tablet TAKE ONE TABLET BY MOUTH active Not Available Not Available No t Available rizatriptan 10 mg tablet TAKE 1/2 TO 1 TABLET 5MG TO 10MG) AT ONSET OF MIGRANE. MAY BE REPEATED IN 2 HOURS IF NEEDED MAX 2 PER DAY OR 4 TABLETS PER WEEK) - MAY GUNNAR 05/28 completed Not Available Not Available Not Available propranolol ER 60 mg capsule,24 hr,extended release TAKE ONE CAPSULE BY MOUTH AT BEDTIME 05/28 completed Not Available Not Available Not Available venlafaxine ER 150 mg capsule,ext ended release 24 hr TAKE ONE CAPSULE BY MOUTH EVERY DAY 05/28 completed Not Available Not Available Not Available sumatriptan 50 mg tablet TAKE 1 TABLET BY MOUTH NEEDED FOR HEADACHE MAY REPEAT IN 2 HOURS NEEDED 05/28 completed Not Available Not Available Not Available Wellbutrin SR 100 mg tablet, 12 hr sustained-r elease Take 1 tablet twice a day by oral route. active Not Available Not Available No t Available paroxetine 20 mg tablet TAKE ONE AND A HALF TABLETS BY MOUTH EVERY MORNING active Not Available Not Available No t Available hydroxyzine HCl 25 mg tablet TAKE ONE TABLET BY MOUTH TWICE A DAY NEEDED FOR ANXIETY active Not Available Not Available No t Available verapamil 80 mg tablet TAKE ONE TABLET BY MOUTH THREE TIMES A DAY FOR HEADACHE PREVENTIO N. 05/28 completed Not Available Not Available Not Available amoxicillin 875 mg-potassiu m clavulanate 125 mg tablet TAKE ONE TABLET BY MOUTH EVERY 12 HOURS FOR 7 DAYS 05/28 completed Not Available Not Available Not Available Vitamin B-12 2,[address] ONE TABLET UNDER THE TONGUE EVERY DAY active Not Available Not Available No t Available eletriptan 40 mg tablet TAKE 1 TABLET BY MOUTH AT ONSET OF HEADACHE. IF NO RELIEF, MAY REPEAT 1 TABLET AFTER AT LEAST 2 HOURS MAX 2 TABLETS PER 24 HOURS) 05/28 completed Not Available Not Available Not Available Aimovig Autoinjecto r 140 mg/mL subcutaneou s auto-inject or INJECT 140 MG UNDER THE SKIN ONCE FOR 30 DAYS 05/28 completed Not Available Not Available Not Available Ubrelvy 100 mg tablet TAKE ONE-HALF TO ONE TABLET BY MOUTH ONCE NEEDED FOR MIGRAINE HEADACHE FOR 30 DAYS. TAKE AT ONSET OF MIGRAINE, MAY REPEAT IN 2 HOURS MAY 05/28 completed Not Available Not Available Not Available Nurtec ODT 75 mg disintegr[address] ing tablet PLACE ONE TABLET BY MOUTH EVERY DAY NEEDED FOR MIGRAINE MAX DAILY DOSE 1 TABLET 05/28 completed Not Available Not Available Not Available Flowflex COVID-19 Antigen Home Test kit USE DIRECTED PER [employer] TO TEST FOR COVID-19 active Not Available Not Available No t Available Vitals Date Recorded Body height Body mass index (BMI) Body weight Provider Name and Address Organization Details Last Updated DateTime 05/29/2023 152.4 cm 29.3 kg/m2 66798.86 g GUNNAR BERRY [place] - [place] [facility] 05/29/2023 09:15:27 Social History None recorded. Functional Status None recorded. Mental Status None recorded. Family History Nothing Reported. Medical History No medical history recorded. Gynecological HistoryNo gynecological history recorded. Obstetrics History GPAL:G 0 P 0 0 0 0 Past Encounters Encounter ID Performer Location Encounter Start Date Encounter Closed Date Diagnosis/Indication Diagnosis SNOMED-CT Code Diagnosis ICD10 Code Diagnosis IMO Codes Diagnosis Note [id number] [facility] [address] [place] [address] 05/29/2023 09:09:37 05/29/2023 09:49:25 Ulnar impaction syndrome of right wrist 5104519512 1151592 M25.831 Health Concerns Section Related Observation LastModified by Organization Detai ls LastModified Time None Recorded Concern Status LastModified by Organization Details LastModified Time None Recorded Advance Directives Directive None Recorded Payers Insurance Date Sequence Insurance Name Policy Number Policy Cortes Covered Member ID Cortes Member ID Guarantor Name 06/20/2023 1 [facility] PLAN (MEDICAID HMO) BELTRAN Husain [id number] Zoraida Husain Notes Date Note Type Note Provider Name and Address Organization Details Recorded Time 05/29/2023 text/html I am seeing the patient today under the supervision of Dr. Ruiz who was available but who did not see the patient.HPI: 47-year-old female known to me with a prior history of falls with fracture of the distal ulna and associated TFCC impaction type injury in today with recurrence of discomfort in the ulnocarpal and removal of her right wrist. She did not seen by Dr. Ruiz has responded well to corticosteroid injections in the ulnocarpal interval last being 6 months ago. Her pain is begun to return.Past family, medical, social history and review of systems has been reviewed, updated and is located in the patient s chart.Examination:t he patient is alert and cooperative in no acute distress. Afebrile, vital signs stable. There is active ROM of the right wrist and digits. There is tenderness in the ulnocarpal interval without crepitus or clicking. There is negative Mackenzie sign. Circulation and sensation is intact distallyImpression: Right ulnar impaction syndromePlan: The patient is requesting repeat corticosteroid injection. Today, the patient's requests using sterile technique, sterile injection 0.2 Marcaine 0.8 Kenalog injections. The right ulnar carpal interval. Postinjection precautions discussed. Recheck as needed Elan Freeman PA-C [address], [place], [address], [facility] 05/29/2023 09:43:15 OBGyn Episode No OBEpisode recorded.
--- OUTSIDE RECORDS SUMMARY | 2024-12-15 11:02 | XMS_ITS ---
Author Name [facility] Organization Unknown Care Team Organization Name Specialty Phone Email Start Date End Da te [facility] [place] [facility] [email or web address] 06/25/2022 4 [facility] Heather Álvarez Primary [facility] 12/26/202109/18 4
--- OUTSIDE RECORDS SUMMARY | 2024-12-15 11:02 | XMS_ITS | Clinical Summary ---
Author Organization [facility] [address] [place] [address] [place] [phone] Phone Care Team Providers Care Tube Repairer Name Role Phone Aroldo Carter MD Primary Care Pr ovider Allergies Active Allergy Reactions Criticality Noted Date Comments Azithromycin 04/04/2007 Other Reaction(s): Rash/Dermatitis Per pt 10 years ago facial redness only. Medications IBU 600 mg tablet Take 1 tablet (600 mg total) by mouth every 6 (six) hours if needed. 2023 Active hydrOXYzine HCL (ATARAX) 25 mg tabletIndicatio [...] by mouth at bedtime. 90 each 05/20/2024 Active PARoxetine (PAXIL) 40 mg tabletIndicatio ns:Anxiety with depression TAKE ONE TABLET BY MOUTH EVERY MORNING 90 tablet 1 07/29/2024 Active Active Problems Problem Noted Date Diagnosed [...] Overview (12/31/2023): Last Assessment & Plan: Ms. Mckay is here for 1 year follow-up after [...] (ASC-H) 05/03/2011 Chronic seasonal allergic rhinitis 06/28/2009 Immunizations Immunization Administration Dates Next Due Influenza Quadravalent, MDCK [...] BIOPSY W/ LOOP ELECTRODE EXCISION 02/2012 PROCEDURE: MD CONIZATION CERVIX W/WO D&C RPR ELTRD EXC; COMMENT: CARMELO 2 with clear margins OTHER SURGICAL HISTORY 1993 PROCEDURE: MD DILATION & CURETTAGE DX&/THER NONOBSTETRIC; COMMENT: for miscarriage NECK SURGERY 01/25/2022 PROCEDURE: HISTORICAL NECK SURGERY; COMMENT: By Dr. Ninfa Saldaña STEREOTACTIC BREAST BIOPSY (RIGHT) Right neg Medical History Medical History Date Comments Tobacco abuse 03/26/2007 DX:Tobacco abuse Historical Medical DX DX:HPV (hu man papillomavirus); COMMENT: before 1999, again in 2011 Other specified personal his tory presenting hazards to health(V15.89) 2012 DX:Other specifie d personal history presenting [...] care for your loved ones. 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 Unrecognized valu e 04/08/2024 Comments Unknown Sex and Gender Information [...] 78 04/15/2024 8:23 AM EST Temperature 36.7 C (98 F) 04/15/2024 8:23 AM EST Respiratory Rate 18 04/15/2024 8:23 AM EST Oxygen Saturation 98% 01/10/2024 8:37 AM EST Inhaled Oxygen Concentration - - Weight 84.8 kg (187 lb) 04/15/2024 8:23 AM EST Height 152.4 cm (5') 04/15/2024 8:23 AM EST Body Mass Index 36.52 04/15/2024 8:23 AM EST Plan of Treatment Upcoming Encounters Date Type Department Care Team (Late st Contact Info) Description 12/22/2024 12:30 PM EST Office Visit Adult Medicine [address] [phone] Brenda Padilla PA [address] [place] [phone] 01/21/2025 9:00 AM EST Appointment Radiology Department - [address] [phone] 03/12/2025 9:00 AM EST Office Visit Obstetrics and Gynecology [address] [phone] Kris Patten, MERLY [address] [place] [address] Health Maintenance Due Date Last Done Comments Colorectal Cancer Screening: Colonoscopy 1976 Hepatitis B Vaccines (1 of 3 - 19+ 3-dose series) 07/17/1995 Pneumococcal Vaccine: Pediatrics (0 to 5 Years) and At-Risk Patients (6 to 49 Years) (2 of 2 - PCV) 01/14/2021 01/15/2020 HIV Screening 01/21/2022 Cervical Cancer Screening: Pap Smear 01/03/2023 01/04/2020 COVID-19 Vaccine ( season) 2024 04/12/2022, 05/06/2021, 05/16/2020, Additional history exists Influenza Vaccine (#1) 2024 , 11/19/2022, 11/02/2021, Additional history exists Social Influencers of Health Screening 04/08/2025 04/08/2024 Breast Cancer Screening 07/22/2026 07/23/19 25, 01/10/2024, 03/01/2022, Additional history exists Cholesterol Screening (Lipid Panel) 04/14/2029 04/14/2024 DTaP,Tdap,and Td Vaccines (3 - Td or Tdap) 09/26/2030 09/26/2020, 12/22/2008 RSV Immunization Adult Patients (1 - 1-dose 75+ series) 07/17/2051 Depression Screening Completed 04/08/2024 Hepatitis C Screening Completed 04/14/2024 HIB Vaccines [...] Procedure Name Priority Date/Time Associated Diagnosis Comments MG MAMMO DIAGNOSTIC ADDL VIEWS LEFT Routine 07/22/2024 9:09 AM EDT Abnormal mammogram HEPATITIS C ANTIBODY Routine 04/14/2024 8:34 AM EST Need for hepatitis C screening test LIPID PANEL WITH REFLEX TO DIRECT LDL Routine 04/14/2024 8:34 AM EST Mixed hyperlipidemia PAP SMEAR Routine 01/04/2020 from Last 3 Months or Most Recently Relevant to Health Maintenance Results * MG Mammo Diagnostic Addl Views Left (07/22/2024 9:09 AM EDT) Anatomical Region Laterality Modality Breast Left Mammography 07/22/2024 10:1 3 AM EDT Impressions 07/22/2024 11:57 AM EDT Stable probably benign calcifications in the outer left breast. Recommend continued follow-up in 6 months with magnification views. BREAST DENSITY: C - The breasts are heterogeneously dense which may obscure small masses. BI-RADS CATEGORY: 3 - PROBABLY BENIGN RECOMMENDATION: Short Interval Follow-up is recommended for the left breast in 6 months. MAMMO LOCATION: [facility], [address] [place] [address], [id number], . -------- FINAL REPORT -------- Dictated By: Jacey Richardson Dictated Date: 07/22/2024 10:13 ET Assigned Physician: Jacey Richardson Reviewed and Electronically Signed By: Jacey Richardson Signed Date: 07/22/2024 11:57 ET Workstation ID: [id number] Transcribed By: Self Edit Transcribed Date: 07/22/2024 10:16 ET Narrative 07/22/2024 11:57 AM EDT EXAM: Unilateral left diagnostic mammogram HISTORY: Six-month follow-up for probably benign calcifications in the outer left breast. COMPARISON: 01/22/2024, 01/10/2024 TECHNIQUE: Magnification ML and CC views performed. FINDINGS: No significant interval change in groupings of calcifications in the outer left breast near the 3 o'clock position. These appear smudgy on the CC projection and show benign milk of calcium appearance on the ML view. Other similar appearing calcifications in the upper breast have stable appearance. Procedure Note Jacey Richardson MD - 07/22/2024 EXAM: Unilateral left diagnostic mammogram HISTORY: Six-month follow-up for probably benign calcifications in theouter left breast. COMPARISON: 01/22/2024, 01/10/2024 TECHNIQUE: Magnification ML and CC views performed. FINDINGS: No significant interval change in groupings of calcifications in the outerleft breast near the 3 o'clock position. These appear smudgy on the CCprojection and show benign milk of calcium appearance on the ML view.Other similar appearing calcifications in the upper breast have stableappearance. IMPRESSION: Stable probably benign calcifications in the outer left breast. Recommendcontinued follow-up in 6 months with magnification views. BREAST DENSITY: C - The breasts are heterogeneously dense which mayobscure small masses. BI-RADS CATEGORY: 3 - PROBABLY BENIGN RECOMMENDATION: Short Interval Follow-up is recommended for the leftbreast in 6 months. MAMMO LOCATION: [facility], [address] [place] [address], [phone], . -------- FINAL REPORT -------- Dictated By: Jacey Richardson Dictated Date: 07/22/2024 10:13 ET Assigned Physician: Jacey Richardson Reviewed and Electronically Signed By: Jacey Richardson Signed Date: 07/22/2024 11:57 ET Workstation ID: [id number] Transcribed By: Self Edit Transcribed Date: 07/22/2024 10:16 ET Aroldo Carter MD IMG BI PROCEDURE S Final Result * Hepatitis C antibody (04/14/2024 8:34 AM EST) [facility] Hepatitis C Antibody Negative Negative LAB CHEMISTRY METHOD 04/14/2024 5:10 PM EST [facility] Blood Venous blood specimen / Unknown Venipuncture / Unknown 04/14/2024 8:34 AM EST 04/14/2024 8:34 AM EST Aroldo Carter MD LAB BLOOD ORDERA BLES Final Result [facility] [address] [place] [address], [place] [phone] * (ABNORMAL) Lipid panel with reflex to direct LDL (04/14/2024 8:34 AM EST) Cholesterol 207(H) 0 - 200 mg/dL LAB CHEMISTRY METHOD 04/14/2024 10:36 AM [facility] Triglycerides 139 0 - 150 mg/dL LAB CHEMISTRY METHOD 04/14/2024 10:36 AM [facility] HDL 45 >=40 mg/dL LAB CHEMISTRY METHOD 04/14/2024 10:36 AM [facility] LDL Calculated 134(H) 0 - 100 mg/dL LAB CHEMISTRY METHOD 04/14/2024 10:36 AM EST [facility] VLDL Cholesterol Wes 27.8 mg/dL LAB CHEMISTRY METHOD 04/14/2024 10:36 AM [facility] Non HDL Chol. (LDL+VLDL) 162(H) <145 mg/dL LAB CHEMISTRY METHOD 04/14/2024 10:36 AM [facility] Chol/HDL Ratio 4.6(H) 0.0 - 4.4 LAB CHEMISTRY METHOD 04/14/2024 10:36 AM EST [facility] Blood Venous blood specimen / Unknown Venipuncture / Unknown 04/14/2024 8:34 AM EST 04/14/2024 8:34 AM EST Aroldo Carter MD LAB BLOOD ORDERA BLES Final Result [facility] [address] [place] [address], * Pap smear (01/04/2020) 01/04/2020 Narrative HISTORICAL TESTING LAB RESULTING AGENCY - 01/11/2020 12:21 PM EST [id number] THINPREP PAP, IMAGED: NEGATIVE FOR SQUAMOUS INTRAEPITHELIAL LESION AND MALIGNANCY . REACTIVE CELLULAR CHANGES. BRANT SMITH , LACHELLE(ASCP) (CASE SCREENED 01 08 2020) NAHEED MATOS M.D. , PATHOLOGIST (CASE ELECTRONICALLY SIGNED 01 08 2020) RESULT OF APTIMA HIGH RISK HPV ASSAY: HIGH RISK HPV: NEGATIVE (SEROTYPES 16,18,31,33,35,39,45,51,52,56,58,59,66,68) COMPLETED ON 2020-01-06 ADEQUACY: SATISFACTORY ENDOCERVICAL/TRANSFORMATION ZONE COMPONENT PRESENT. SOURCE: THINPREP PAP HPV ANY DX: REFLEX 16 AND 18, CERVICAL, IMAGED CLINICAL INFORMATION: HPV ANY DIAGNOSIS. 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
--- OUTSIDE RECORDS SUMMARY | 2024-12-15 11:02 | XMS_ITS | Data Portability ---
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 Plan of Treatment Reminders Order Date Submit Date Provider Last Modified By Organization Details Last Modified Time Details Appointments None recorded. Lab rapid strep group A, throat 2023 024 [email or web address] [id number], [address] [place], [address], 4 08:55:57 SARS CoV 2 (COVID-19) Ag, QL, IA, upper respiratory specimen 2023 024 [email or web address] [place], [address], 4 08:55:58 streptococc us group A, culture, throat 2023 024 JEANE [facility] ([facility], [address] [place] [address], [place], [address], 4 14:09:15 Referral None recorded. Procedures None recorded. Surgeries None recorded. Imaging XR, hand, 3 or more view - L hand pain after ladder hit, 2nd and 3rd metacarpals 2023 024 JEANE [facility], [address] [place] [address], [place], [address], 4 13:49:46 Medication Orders doxycycline monohydrate 100 mg capsule 2023 024 [facility], [address] [place], [address], 4 10:50:43 Medrol (Harley) 4 mg tablets in a dose pack 2023 024 [facility], [address] [place], [address], 4 10:50:44 fluconazole 150 mg tablet 2023 [facility], [address] [place], [address], 4 12:10:51 prednisone 20 mg tablet 2023 024 [email or web address] [facility], [address] [place], [address], 4 10:33:23 Augmentin 875 mg-125 mg tablet 2023 024 [email or web address] [facility], [address] [place], [address], 4 10:32:49 metronidazo le 0.75 % lotion 2023 024 [email or web address] [facility], [address] [place], [address], 4 10:33:19 ipratropium bromide 42 mcg (0.06 %) nasal spray 2023 024 [email or web address] [facility], [address] [place], [address], 4 10:33:04 amoxicillin 500 mg capsule 2023 024 [email or web address] 2 [facility], [address] [place], [address], 12:58:24 prednisone 50 mg tablet 2023 Yusuf claros 2 [facility], [address] [facility], [place], [address], 12:58:38 Patient TargetsNo targets recorded. Patient Instructions Encounter Date Encounter Id Patient Instructions Last Modified By Organization Details Last Modified Time 07/18/2023 [id number] Based on your Presentation, Exam, and Lab Testing you are being diagnosed with Pharyngitis. Your Rapid Strep Test was Negative. Most likely your sore throat is being caused by a virus, post nasal drip, or silent acid reflux. I am going to send a Throat Culture to the lab for you to make sure you don't have a different form of strep in your throat. This will take about 72 hours for that result to return. We will contact you if it positive - if for some reason you don't get a copy of your results or hear from us - please contact our office. The following are my other recommendations to help with symptoms and is important for this diagnosis: 1. Do not share any food or drinks - strep is passed through direct saliva exchange (NOT IN THE AIR) 2. Take Ibuprofen or Tylenol if you do not have any allergies to these medications. If you take a blood thinner you should not take NSAIDS like Ibuprofen. These medication will help with the inflammation in your respiratory tract which should help the cough. (I would alternate between Tylenol 650 mg and your Ibuprofen 600 mg every 4 hours) 3. Do not take any Cold Medications that have a Decongestant in it - this will dry out your throat and make the sore throat worse. 4. Drinking Hot Tea with honey can help coat and soothe your throat. 5. You would be considered contagious for the next 24-48 hours, or until fever resolves. I would be seen again if you develop any of the following symptoms. 1. Fever > 101.0 2. Stiff neck - where you can't turn your neck 3. Trouble swallowing your saliva - drooling 4. Swelling of a lymph node in your throat that is painful to touch 5. Difficulty breathing 6. Severe Headache Thank you for using [employer] today, please feel free to contact our office if you have any questions or concerns. [email or web address] Not available 07/18/2023 08:48:53 11/06/2023 [id number] Acute Sinusitis: Care Instructions Not available 11/06/2023 13:50:59 Acute Sinusitis: Care Instructions Not available 11/06/2023 13:50:59 12/20/2023 [id number] Acute Sinusitis: Care Instructions [email or web address] Not available 12/20/2023 10:50:40 Reason for Referral None Reported. Results Created Date Observation Date Name Description Value Unit Range Abnormal Flag Note LastModifiedBy Organization Detail LastModifiedTime 07/18/19 24 07/20/2023 BETA STREP GP A CULTU RE beta strep gp A culture NEGATI VE Refer ence Range : Negat angel Not Available [facility] ([facility]) [address] [facility], [place], [address], 07/20/2023 14:09:15 07/18/19 24 07/18/2023 SARS CoV 2 (COVI D-19) Ag, QL, IA, upper respi rator y speci men Unknown Analyte negati ve Not Available [address] [place], [address], 07/18/2023 08:43:06 07/18/19 24 07/18/2023 SARS CoV 2 (COVI D-19) Ag, QL, IA, upper respi rator y speci men Unknown Analyte yes Not Available [facility] [address] [place], [address], 07/18/2023 08:43:06 07/18/19 24 07/18/2023 rapid strep group A, throa t Unknown Analyte negati ve Not Available [address] [place], [address], 07/18/2023 08:22:16 09/07/19 24 09/07/2023 XR, hand, 3 or more view No observ ation record ed. JEANE [facility] [address] [place], [address], 09/09/2023 12:47:40 09/09/19 24 XR, hand, 3 or more view No observ ation record ed. moshe [facility] [address] [place], [address], 09/09/2023 07:41:09 Result Notes None recorded. Problems Name Problem SNOMED Code Status Onset Date Resolution Date Notes Provider Name and Address Organization Details Recorded Time Anxiety 71015596 Active 023 JANEE MEDINA null, PA - [facility] 3 09:33:26 Allergic rhinitis 61641229 Active 024 Sherice Bricault null, PA - [facility] 4 12:59:16 Anxiety disorder 187713257 Active 024 Sherice Bricault null, PA - [facility] 4 12:59:33 Depressive disorder 62241437 Active 024 Sherice Bricault null, PA - [facility] 4 12:59:52 Acute sinusitis 35598749 Active 024 Khushbu Leon NP [address] , [place], [address], PA - [facility] 4 13:49:48 Acute laryngitis 9064861 Active 024 Khushbu Leon NP [address] [place], [address], [place] PA - [facility] 4 13:49:57 Problem Notes None recorded. Procedures Surgical History Date Name Laterality Status Provider Name and Address Organization Details Recorded Time 2 operative procedure on spinal structure completed JANEE MEDINA PA - [facility] 07/26/2022 09:34:54 Imaging Results None recorded. Procedure Notes None recorded. Medical Equipment None Reported. Allergies Allergen ID Allergen Name Allergen Category Reaction Reaction Severity Criticality Documentation Date Start Date Code Code System Note Provider Name and Address Organization Details Recorded Time 644572 azithromy nicolás medicatio n rash Not available Not available 07/26/2022 69330 RxNorm TEZ Romero - [facility] 3 09:32:17 Medications Name Sig Start Date Stop Date Status Note LastModified by Organization Details LastModified Time amoxicillin 500 mg capsule Take 1 capsule twice a day by oral route for 10 days. 09/06 completed Not Available Not Available Not Available Mirena 21 mcg/24 hr (up to 8 years) 52 mg intrauterin e device Take by intrauter ine route. active Not Available Not Available No t Available bupropion HCl SR 150 mg tablet,12 hr sustained-r elease TAKE ONE TABLET BY MOUTH EVERY DAY 2023 active Not Available Not Available Not Avai lable prednisone 10 mg tablet 4 pills po qd x 3 days, 3 pills po qd x 3 days, 2 pills po qd x 2 days, 1 pills po qd x 2 days 07/17 completed Not Available Not Available Not Available fluconazole 150 mg tablet Take 1 tablet every 72 hours by oral route for 6 days. 2023 active Not Available Not Available Not Avai lable Claritin 10 mg tablet Take 1 tablet every day by oral route. active Not Available Not Available No t Available Medrol (Harley) 4 mg tablets in a dose pack Take as directed 2023 active Not Available Not Available Not Avai lable prednisone 20 mg tablet TAKE ONE TABLET BY MOUTH EVERY DAY FOR 5 DAYS FOR LATYNGITI S 12/19 completed Not Available Not Available Not Available rizatriptan 10 mg tablet TAKE 1/2 TO 1 TABLET 5MG TO 10MG) AT ONSET OF MIGRANE. MAY BE REPEATED IN 2 HOURS IF NEEDED MAX 2 PER DAY OR 4 TABLETS PER WEEK) - MAY GUNNAR 10/10 completed Not Available Not Available Not Available propranolol ER 60 mg capsule,24 hr,extended release TAKE ONE CAPSULE BY MOUTH AT BEDTIME 10/10 completed Not Available Not Available Not Available IBU 600 mg tablet TAKE ONE TABLET BY MOUTH EVERY 6 HOURS NEEDED FOR PAIN active Not Available Not Available No t Available metronidazo le 0.75 % lotion Apply 1 applicati on twice a day by topical route for 14 days. 12/19 completed Not Available Not Available Not Available doxycycline monohydrate 100 mg capsule Take 1 capsule twice a day by oral route for 10 days. 2023 active Not Available Not Available Not Avai lable paroxetine 20 mg tablet TAKE ONE AND A HALF TABLETS BY MOUTH EVERY MORNING active Not Available Not Available No t Available prednisone 50 mg tablet Take 1 tablet every day by oral route for 3 days. 09/06 completed Not Available Not Available Not Available gabapentin 300 mg capsule TAKE ONE CAPSULE BY MOUTH EVERY EVENING AT BEDTIME active Not Available Not Available No t Available hydroxyzine HCl 25 mg tablet TAKE ONE TABLET BY MOUTH TWICE A DAY NEEDED FOR ANXIETY active Not Available Not Available No t Available ipratropium bromide 42 mcg (0.06 %) nasal spray USE 2 SPRAYS THREE TIMES A DAY FOR 10 DAYS DIRECTED 12/19 completed Not Available Not Available Not Available amoxicillin 875 mg-potassiu m clavulanate 125 mg tablet TAKE ONE TABLET BY MOUTH EVERY 12 HOURS FOR 10 DAYS FOR SINUS INFECTION 12/19 completed Not Available Not Available Not Available eletriptan 40 mg tablet TAKE 1 TABLET BY MOUTH AT ONSET OF HEADACHE. IF NO RELIEF, MAY REPEAT 1 TABLET AFTER AT LEAST 2 HOURS MAX 2 TABLETS PER 24 HOURS) 10/10 completed Not Available Not Available Not Available magnesium 07/17 completed Not Available Not Available Not Available fluoxetine active Not Available Not Av ailable Not Available hydroxyzine HCl 10/10 completed Not Available Not Available Not Available venlafaxine 12/05 completed Not Available Not Available Not Available Paxil 07/17 completed Not Available Not Available Not Available multivitami n 07/17 completed Not Available Not Available Not Available B12 07/17 completed Not Available Not Available Not Available Aimovig Autoinjecto r 140 mg/mL subcutaneou s auto-inject or INJECT 140 MG UNDER THE SKIN ONCE FOR 30 DAYS 10/10 completed Not Available Not Available Not Available Ubrelvy 100 mg tablet TAKE ONE-HALF TO ONE TABLET BY MOUTH ONCE NEEDED FOR MIGRAINE HEADACHE FOR 30 DAYS. TAKE AT ONSET OF MIGRAINE, MAY REPEAT IN 2 HOURS JUNE 25 completed Not Available Not Available Not Available Nurtec ODT 75 mg disintegrat ing tablet PLACE ONE TABLET BY MOUTH EVERY DAY NEEDED FOR MIGRAINE MAX DAILY DOSE 1 TABLET 10/10 completed Not Available Not Available Not Available Flowflex COVID-19 Antigen Home Test kit USE DIRECTED PER [employer] ONS TO TEST FOR COVID-19 11/05 completed Not Available Not Available Not Available Vitals Date Recorded Body height Body mass index (BMI) Body weight Oxygen saturation Oxygen saturation in Arterial blood by Pulse oximetry Pain severity - 0-10 verbal numeric rating [Score] - Reported Heart rate Respiratory rate Body temperature Systolic And Diastolic Provider Name and Address Organization Details Last Updated DateTime 4 152.4 cm 34.2 kg/m2 86747.6 6 g 99 % 99 % 6 76 /min 18 /min 98.6 [degF] 135/77 mm[Hg] Allyn Cardona PA [employer] [facility] 4 08:20:46 Date Recorded Body height Body mass index (BMI) Body weight Respiratory rate Pain severity - 0-10 verbal numeric rating [Score] - Reported Body temperature Oxygen saturation Oxygen saturation in Arterial blood by Pulse oximetry Heart rate Systolic And Diastolic Provider Name and Address Organization Details Last Updated DateTime 4 152.4 cm 34.2 kg/m2 19626.6 6 g 17 /min 7 97.1 [degF] 98 % 98 % 87 /min 108/72 mm[Hg] Sherice Hamilton PA [facility] 4 13:04:14 Date Recorded Body height Body mass index (BMI) Body weight Pain severity - 0-10 verbal numeric rating [Score] - Reported Body temperature Respiratory rate Oxygen saturation Oxygen saturation in Arterial blood by Pulse oximetry Heart rate Systolic And Diastolic Provider Name and Address Organization Details Last Updated DateTime 4 152.4 cm 34.2 kg/m2 60596.6 6 g 3 97.8 [degF] 18 /min 98 % 98 % 78 /min 119/72 mm[Hg] Olimpia Drake PA - [facility] 4 08:53:50 Date Recorded Body height Body mass index (BMI) Body weight Oxygen saturation Oxygen saturation in Arterial blood by Pulse oximetry Pain severity - 0-10 verbal numeric rating [Score] - Reported Heart rate Respiratory rate Body temperature Systolic And Diastolic Provider Name and Address Organization Details Last Updated DateTime 4 152.4 cm 34.4 kg/m2 64800.2 6 g 99 % 99 % 2 86 /min 17 /min 98.4 [degF] 128/80 mm[Hg] Jil Balderas PA - [facility] 4 13:29:26 Date Recorded Body height Body mass index (BMI) Body weight Oxygen saturation Oxygen saturation in Arterial blood by Pulse oximetry Pain severity - 0-10 verbal numeric rating [Score] - Reported Heart rate Respiratory rate Body temperature Systolic And Diastolic Provider Name and Address Organization Details Last Updated DateTime 4 152.4 cm 36.1 kg/m2 09651.5 9 g 99 % 99 % 0 77 /min 18 /min 98.8 [degF] 137/87 mm[Hg] Amy Olearyulet PA - [facility] 4 10:34:50 Social History Question Answer Notes LastModified by Limbo ion Details LastModified Time Tobacco Smoking Status Former Smoker JANEE pineda PA - [facility] 07/26/2022 09:34:35 When Did You Quit Smoking? 1-5yearssinc elastcigaret te 3 Years Ago Information not available 12/05/2022 Have You Had A Flu Shot This Season? Yes Information not available 12/05/2022 If No, Would You Like A Flu Shot Today? No Information not available 09/07/2023 Have You Had Direct Contact, Or Contact During Intimacy, With Monkeypox Rash, Scabs, Or Body Fluids From A Person With Monkeypox? No Information not available 12/05/2022 What Was The Date Of Your Most Recent Tobacco Screening? 07/18/2023 Information not available 07/18/2023 What Is Your Relationship Status? Information not available 07/18/2023 Have You Recently Traveled Abroad? No Information not available 07/26/2022 Are You Currently In School? No Information not available 07/18/2023 Sex: Unknown Functional Status Question Answer Note LastModified by Organizat ion Details LastModified Time Do you use any illicit or recreational drugs? No Information not available 10/11/2023 Do you or have you ever used any other forms of tobacco or nicotine? No Information not available 07/18/2023 What is your level of alcohol consumption? Occasional once every couple months Information not available 12/05/2022 Are you currently employed? Yes Information not available 09/07/2023 Do you or have you ever used e-cigarettes or vape? Current user of electronic cigarettes vapes Information not available 07/26/2022 Mental Status None recorded. Family History Relationship Description Onset Age of this Age Resolved Age Notes LastModified by Organization Details LastModified Time Father No current problems or disability [email or web address] Not available 07/26 09:33:39 Mother Hypertensive disorder [email or web address] Not available 2022 09:33:50 Mother Irritable bowel syndrome [email or web address] Not available 2022 09:33:57 Medical History No medical history recorded. Gynecological History Statement/Question Response Is there any chance of ? No LMP N/A Obstetrics History GPAL:G 0 P 0 0 0 0 Immunizations Vaccine Type Date Status Note Provider Nam e and Address Organization Details Recorded Time Influenza, MDCK, quadrivalent, PF 9 completed JANEE MACHNACZ null, PA - [facility] 07/26/2022 09:31:12 Influenza, MDCK, quadrivalent, PF 2 completed JANEE MACHNACZ null, PA - [facility] 07/26/2022 09:31:12 Influenza, MDCK, quadrivalent, PF 0 completed JANEE MACHNACZ null, PA - [facility] 07/26/2022 09:31:12 Influenza, MDCK, quadrivalent, PF 1 completed JANEE MACHNACZ null, PA - [facility] 07/26/2022 09:31:12 COVID-19, mRNA, LNP-S, PF, 30 mcg/0.3 mL dose 1 completed JANEE MACHNACZ null, PA - [facility] 07/26/2022 09:31:12 COVID-19, mRNA, LNP-S, PF, 30 mcg/0.3 mL dose 1 completed JANEE MACHNACZ null, PA - [facility] 07/26/2022 09:31:12 COVID-19, mRNA, LNP-S, PF, 30 mcg/0.3 mL dose, mumtaz-sucrose 2 completed JANEE MACHNACZ null, PA - [facility] 07/26/2022 09:31:12 COVID-19, mRNA, LNP-S, bivalent, PF, 30 mcg/0.3 mL dose 3 completed JANEE MACHNACZ null, PA - [facility] 07/26/2022 09:31:12 pneumococcal polysaccharide PPV23 0 completed JANEE MACHNACZ null, PA - [facility] 07/26/2022 09:31:12 Tdap 9 completed JANEE MACHNACZ null, PA - [facility] 07/26/2022 09:31:12 Influenza, split virus, trivalent, preservative 1 completed JANEE MACHNACZ null, PA - [facility] 07/26/2022 09:31:12 Influenza, split virus, trivalent, preservative 0 completed JANEE MACHNACZ null, PA - [facility] 07/26/2022 09:31:12 Influenza, split virus, trivalent, preservative 4 completed JANEE MACHNACZ null, PA - [facility] 07/26/2022 09:31:12 Td (adult), 2 Lf tetanus toxoid, preservative free, adsorbed 1 completed JANEE MACHNACZ null, PA - [facility] 07/26/2022 09:31:13 Influenza, split virus, quadrivalent, PF 8 completed JANEE MACHNACZ null, PA - [facility] 07/26/2022 09:31:13 Influenza, MDCK, quadrivalent, PF 3 completed Olimpia Noelle null, PA - [facility] 12/05/2022 08:24:11 Past Encounters Encounter ID Performer Location Encounter Start Date Encounter Closed Date Diagnosis/Indication Diagnosis SNOMED-CT Code Diagnosis ICD10 Code Diagnosis IMO Codes Diagnosis Note [id number] [place] [address] 03/21/2019 11:05:06 03/21/2019 12:37:04 [id number] [place] [facility] [address] 08/05/2018 11:26:03 08/05/2018 12:35:00 [id number] [place] [address] 09/19/2019 11:36:05 09/19/2019 13:13:12 [id number] [place] [facility] [address] 05/04/2017 15:52:14 05/04/2017 16:44:45 [id number] [address] [place] [address] 12/27/2021 09:12:53 12/27/2021 11:16:43 [id number] [address] [place] [facility] [address] 04/13/2018 11:52:41 04/13/2018 13:18:23 [id number] [address] [facility] [place] [address] 08/20/2019 09:45:01 08/20/2019 11:55:36 [id number] [address] [facility] [place] [address] 03/18/2020 16:08:09 03/18/2020 16:38:26 [id number], [place] [address] 04/09/2017 11:52:15 04/09/2017 12:59:21 [id number] [address] [place], [place] [address] 01/15/2022 08:55:48 01/15/2022 11:06:50 [id number] Beto Damon NAIL STICKER [facility] [facility] [address] [place] [address] 07/26/2022 08:54:55 07/26/2022 10:48:20 Pain of right wrist 1506884798 81382 M25.531 Closed fra cture of styloid process of ulna 82961766 S52.611A [id number] Khushbu Leon NP [facility] [address] [facility] [place] [address] 12/05/2022 08:13:36 12/05/2022 09:12:35 Acute sinusitis 61229187 J01.90 Based on your presentati on and exam, you are diagnosed with ACUTE SUNUSITIS My suggestion s for this condition include:1. continue with the sinus rinse2. Elevate your head on a pillow when in bed if not contraindi cated3. Rest,4. Stay hydated5. Take Ibuprofen or Tylenol if you do not have any allergies to these medication s. If you take a blood thinner you should not take NSAIDS like Ibuprofen. If you are still having pain 1-2 weeks. I would suggest that you follow up with our office again or schedule and appointmen t with your doctor Thank you for using [facility] , please contact our office if you have any questions or concerns. Allergic c ontact dermatitis 990704469 L23.9 Based on your presentati on and exam today, I am diagnosing you with an allergic rash (skin eruption ) Take the prednisone taper as ordered The following are my recommenda tions to help you feel better and aid in resolving this skin eruption1. no Antibiotic ointment.2 . Warm Epsen Salt Soaks - 2 or 3 x daily. This will help move the infection to the surface of the skin.3. Take Ibuprofen or Tylenol if you do not have any allergies to these medication s. If you take a blood thinner you should not take NSAIDS like Ibuprofen. These medication will help with the inflammati on .4. Do no squeeze or pick at the area. This can worsen . The following are warning signs to look out for that would suggest worsening. This would mean you should be seen again:1. Fever > 100.52. Redness is spreading to double the size in 24 hours3. Increased swelling and pain.4. Inability to move a joint5. Swollen lymph nodes that are tender Thank you for using [employer] today, please don't hesitate to call or reach out to us if you have any questions or concerns. [id number] TEZ LOPEZ [address] [facility] [address] [place] [address] 07/18/2023 08:07:15 07/18/2023 09:03:23 Acute pharyngitis 963043432 J02.9 Nasal congestion 1025597 0 R09.81 [id number] TEZ SANTANA [address] [facility] [address] [place] [address] 09/07/2023 12:44:10 09/07/2023 13:24:02 Injury of left hand 4095733224 4469515 S69.92XA Based on your presentati on and exam, you are diagnosed with an Hand Contusion. My suggestion s for this condition include:1. Ice2. Elevate3. Rest4. Make sure you stretch your wrist regularly for the next 1-2 weeks5. Take Ibuprofen or Tylenol if you do not have any allergies to these medication s. If you take a blood thinner you should not take NSAIDS like Ibuprofen. 6. After 3 days of icing - I would switch to heat - this will help reabsorb any bruising or swelling.7 . OK to wear wrist splint. If you are still having pain 2-3 weeks. I would suggest that you follow up with our office again or schedule and appointmen t with an orthopedis t. I would be seen more urgently if you develop any of the following symptoms.1 . Numbness2. Cold Extremitie s3. Worsening Pain4. Skin Redness5. Arm Swelling Thank you for using [facility] , please contact our office if you have any questions or concerns. [id number] TEZ Parks [address] [facility] [address] [place] [facility] [address] 10/11/2023 08:30:37 10/11/2023 09:18:39 Eruption of skin of face 3855774264 R21 DERMATITIS -Avoidance of triggers or exacerbati ng factors identified if possible for patient. A dvise frequent and liberal use of emollients on the affected areas, especially after any contact with water. Use white soft paraffin-b ased formulatio ns, or a cream formulatio n if the patient does not tolerate this. A dvise patients against prolonged wet work and suggest wearing protective gloves if necessary. Recommend use of mild cleansers only and avoidance of skin products with fragrance or dyes. [id number] Khushbu Leon [place] [id number] [facility] [address] [place] [address] 11/06/2023 12:52:10 11/06/2023 14:02:24 Acute sinusitis [id number] J01.90 Based on your presentati on and exam, you are diagnosed with ACUTE SUNUSITIS My suggestion s for this condition include:1. continue with the sinus rinse2. Elevate your head on a pillow when in bed if not contraindi cated3. Rest,4. Stay hydrated5. Take Ibuprofen or Tylenol if you do not have any allergies to these medication s. If you take a blood thinner you should not take NSAIDS like Ibuprofen. If you are still having pain 1-2 weeks. I would suggest that you follow up with our office again or schedule and appointmen t with your doctor Thank you for using [facility] , please contact our office if you have any questions or concerns. Acute laryngitis [id number] J04.0 [id number] TEZ Parks [address] [place] [address] 12/20/2023 10:26:27 12/20/2023 10:54:23 Acute sinusitis [id number] J01.90 Based on your presentati on and exam, you are being diagnosed with Sinusitis. Rhinosinus itis is most often viral and will resolve on its own in 7-10 days. Symptoms that last longer than 2 weeks an antibiotic could be considered . Based on your presentati on, an antibiotic was written. The following are my recommenda tions to help your symptoms and to allow your condition to improve: 1. Drink plenty of fluids while you are ill- stay hydrated 2. Rest - don't overexert yourself - this includes sports and any gym routines. 3. I suggest taking an antihistam ine - like Claritin, Zyrtec, or Benedryl 4. If you take OTC cold medication I would recommend Jaja-Selze r Cold/Cough . 5. Mucinex with a lot of water is ok - if you are having trouble clearing your nasal passages of mucous. However, if you start to cough then discontinu e - this can increase coughing due to a watery post nasal drip. 6. Steroid Nasal [place] like Flonase or Nasonex is recommende d. Since an antibiotic was prescribed you need to complete the full course - this is important so you don't develop any antibiotic resistance to future infections . I advise taking a Probiotic like Florastor since you are on an antibiotic - this will help you re-coloniz e your body with the good bacteria. Typically, it will take 6 months for you to restore your normal body ty after an antibiotic . Don't hesitate to be seen again if you develop: 1. Fever > 100.5 2. Worsening Headache 3. Stiff Neck 4. Worsening Cough or Shortness of breath 5. Visual Changes. The antibiotic should start to work in 4-5 days. You may not notice immediate response. Thank you for using [facility] today, please feel free to contact our office if you have any questions or concerns. Health Concerns Section Related Observation LastModified by Organization Detai ls LastModified Time None Recorded Concern Status LastModified by Organization Details LastModified Time None Recorded Advance Directives Directive None Recorded Payers Insurance Date Sequence Insurance Name Policy Number Policy Cortes Covered Member ID Cortes Member ID Guarantor Name 12/20/2023 1 [facility] [employer] - HEALTH NET PLAN (MEDICAID HMO) BELTRAN Husain [id number] Zoraida Husain 07/26/2022 2 [place] [facility] Zoraida Husain [id number] Zoraida Lisha 01/09/2022 GENERIC WORKER'S COMP (MOVED TO HOLD) Zoraida Husain Notes Date Note Type Note Provider Name and Address Organization Details Recorded Time 07/18/2023 text/html Sore throatRepor elizabeth by [email or web address] y.o female pt with recent dental extraction on Saturday presents with sore throat and some nasal congestion that started on Saturday. Pt denies cough, chest pain or SOB. TEZ LOPEZ [address] [place], [address], [place] - [facility] 07/18/2023 08:58:28 09/07/2023 text/html 48y/o female here after injuring her L hand when a ladder closed on it TEZ Parks [address] [place], [address], [place] - [facility] 09/07/2023 13:25:04 10/11/2023 text/html 48 y/o female here with painful red rash to her face as of this morning. She has not used any new products, took benadryl last night, but nothing else new TEZ Parks [address] [place], [address], [place] - [facility] 10/11/2023 09:41:08 11/06/2023 text/html Sinus Complaints UCReported by Patient 48 YOF presents with possible sinus infection. about 2 weeks with allergies worsen, at home covid test negative. States frequent sinus infections, blocked ears, sinus pressure and pain. No fever, mucous very thick hard to blow her nose Khushbu Leon NP [address] [place], [address], [place] - [facility] 11/06/2023 13:52:53 12/20/2023 text/html 48 y/o female here with 2 weeks of congestion, started as sore throat, cough, congestion, fevers, chills. Congestion has worsened significantly and she is having a lot of head pain and pressure TEZ Parks [address] [place], [address], [place] - [facility] 12/20/2023 12:10:53 OBGyn Episode No OBEpisode recorded.
[2024-12-15 13:32] LABS: MANUAL DIFF FLAG NO
[2024-12-15 13:34] LABS: Hematocrit 43.3 % (37.0-47.0); Hemoglobin 14.4 g/dl (12.0-16.0); Imm Gran Abs Auto 0.03 X10*3/uL (0.00-0.03); Imm Gran Pct Auto 0.3 % (0.0-0.4); Lymphocytes Absolute Auto 2.4 X10*3/uL (1.2-4.9); Mean Corpuscular HGB Conc 33.3 g/dl (31.0-35.0); Mean Corpuscular Hemoglobin 29.4 pg (27.0-33.0); Mean Corpuscular Volume 88.4 fL (80.0-98.0); NRBC Abs Auto 0.000 X10*3/uL (0.0-0.012); NRBC Pct Auto 0.0 /100WBC (0.0-0.2); Platelet Count 305 X10*3/uL (160-400); Red Blood Count 4.90 X10*6/uL (4.20-5.50); White Blood Count 9.7 X10*3/uL (4.8-10.8)
[2024-12-15 14:21] LABS: Folate 9.2 ng/mL (> or = 4.0); Vitamin B12 220 pg/mL (200-900)
[2024-12-15 14:36] LABS: Albumin Level 4.7 g/dL (3.5-5.0); Alkaline Phosphatase 88 U/L (39-117); Anion Gap 12 (12-20); Aspartate Amino Transferase 23 U/L (5-31); Blood Urea Nitrogen 11 mg/dL (9-16); Calcium 9.1 mg/dL (8.4-10.2); Carbon Dioxide 24 mmol/L (22-29); Chloride 107 mmol/L (96-108); Estimated Glomerular Filt Rate > 60; Ferritin 72 ng/mL (10-250); Iron 66 mcg/dL (30-160); Magnesium 2.1 mg/dL (1.6-2.6); Percent Iron Saturation 21 % (15-50); Potassium 4.3 mmol/L (3.3-5.1); Sodium 139 mmol/L (135-145); Total Iron Binding Capacity 312 mcg/dL (228-428); Total Protein 7.5 g/dL (6.5-8.0); Unsaturated Iron Binding 246 ug/dL
[2024-12-15 14:49] LABS: Alanine Aminotransferase 35 U/L (0-31)
== END 2024-12-15 08:27 | disposition home or self-care (01) ==
LOC: HO.HKASLDS 08:26
PROVIDERS: PCP Family Medicine; Visit Provider Nurse Practitioner Family
DX: G47.19 Other hypersomnia (principal); G43.009 Migraine without aura, not intractable, without status migrainosus; D64.9 Anemia, unspecified; E78.5 Hyperlipidemia, unspecified; Z79.899 Other long term (current) drug therapy; Z86.2 Personal history of diseases of the blood and blood-forming organs and certain disorders involving the immune mechanism
CPT/HCPCS: 36415; 80053; 82607; 82728; 82746; 83540; 83735; 84443; 85025; 99212

== ENCOUNTER 2024-12-15 08:26 | Outpatient (AMB) | payer OTHER, SELFPAY ==
--- NOTE | 2024-12-15 08:31 | A.OFFVIS_ITS ---
Vital Signs 12/15/24 08:32 Height 5 ft Weight 187 lb BMI 36.5 BP 110/70 Blood Pressure Location Rt brachial Position Sitting Pulse 67 Pulse Source Pulse Oximeter Pulse Oximetry (%) 97 Oxygen Delivery Method Room Air Intake Visit Reasons: 6 mo f/u Plug Cutter Required: No Accompanied by: Self / Same As Patient Allergies azithromycin Allergy (Unknown, Verified 12/15/24 08:38) Rash Medication List - Last Reconciled 12/15/24 by AGUEDA Florez cyanocobalamin (vitamin B-12) (Vitamin B-12) 2,500 mcg sublingual DAILY hydroxyzine HCl 25 mg PO BID PRN levonorgestrel (Mirena) intrauterine loratadine (Claritin RediTabs) 10 mg PO DAILY magnesium oxide 400 mg PO DAILY paroxetine HCl 30 mg PO QAM HPI Comments Details: 49-yr-old female presents for f/u migraine and sleep difficulties. She reports she recently had another HST through ? SMS, which was ordered by her PCP. Somehow she missed the previously ordered in-lab PSG. Pt reports she is still having difficulty sleeping, including difficulty to fall asleep, staying asleep, and tossing and turning, snoring, daytime sleepiness, hot flashes. Denies restless leg symptoms, leg cramps. She tries to maintain a consistent bedtime ritual, taking bedtime to you with her son, and putting her phone away before bedtime. She maintains a consistent wake up time. She is active at home, but not engaging in regular structured exercise. She does think that stress plays on swollen her sleep difficulties. Her OB tried her on Gabapentin 300mg-600mg without effect. Previous HST here was inconclusive. She states she has not had a severe migraine in several months. Occasionally may have a low grade headache, a bifrontal/sinus headache not a/w photo/phonophobia or N/V, or may wake up with a low grade headache. States has a family history of sinus infections. 02/28/2023, HPI: Pt denies any significant interval medical changes. For the past 1-1.5months, she has not been sleeping well- this is new for her, unsure what triggered this as she usually sleeps well. She reports difficulty initiating sleep, cannot sleep for hrs, then is just tossing and turning. Sometimes she is ruminating or trying to fall asleep. Takes 1 cup of coffee in early am, once in a while 1 extra cup at 2 pm. Hardly ever any alcohol use. Trying to exercise. When she gets into bed, she may watch TV or use her phone x's 10-15 minutes, then tries to sleep. She has had hot flashes for yrs- but not bothersome. She did have an increase in her paroxetine about 1-2 months from 20-30mg q 7 am. The headache is still constant, 03/30. Has only become mroe severe a few times in past month. Tried both Eletriptan and Ubrelvy a few times, but not together- not effective. Started Aimovig- almost due for 2nd dose- not usre how much effect it has had. Baseline headache characteristics: Severe, dull pain, Starts behind her left eye, and then moves into the temples and back of the head. Pain can be throbbing. Her enck can be tight- makes her head feel like a bowling ball . A/e photophobia, phonophobia, nausea, rarely vomiting, dizziness, brain fog, fatigue, ears feel blocked, triggers anxiety, congestion PFSH Medical History (Updated 12/15/24 @ 09:30 by AGUEDA Florez) History of anemia Surgical History H/O spinal fusion Family History Father Cancer ADHD Mother Hypertension Sister Anxiety Child No Financial Resp ADHD Autism Anxiety Child No Financial Resp ADHD Social History Alcohol intake: current Alcohol intake frequency: holidays/special occasions only Patient Tobacco Use Status: Former Tobacco user e-Cigarette/Vaping Use: Currently Using Physical Exam Vital Signs: Last Vital Signs Pulse 67 12/15/24 08:32 BP 110/70 12/15/24 08:32 Pulse Ox 97 12/15/24 08:32 Oxygen Delivery Method Room Air 12/15/24 08:32 BMI result Body Mass Index 36.5 Const General: cooperative and no acute distress Orientation/consciousness: patient oriented x3 Resp Effort & Inspection: normal respiratory effort and able to speak in complete sentences Neuro General: patient oriented x3 Cognition (Neuro): normal cognition Psych Appearance: grossly normal Mental Status: mental status grossly normal Speech and movement: Normal speech and movement present Affect: normal affect Attitude: cooperative Assessment & Plan Assessment & Plan (1) Snoring: Code(s): R06.83 - Snoring Category: Medical (2) Excessive daytime sleepiness: Code(s): G47.19 - Other hypersomnia Category: Medical (3) Sleep difficulties: Code(s): G47.9 - Sleep disorder, unspecified Category: Medical (4) Migraine without aura: Code(s): G43.009 - Migraine without aura, not intractable, without status migrainosus Category: Medical Qualifiers: Intractability: not intractable Status migrainosus presence: without status migrainosus Qualified Code(s): G43.009 - Migraine without aura, not intractable, without status migrainosus (5) Fatigue: Code(s): R53.83 - Other fatigue Category: Medical Plan For sleep difficulties: Check labs for common etiologies restlessness at night. We will review HST results when available from SMS. If HST again inconclusive, she should undergo in-lab sleep study to assess for sleep apnea and PLMS. Information shared on sleep education resources, such as the sleep unplugged podcast by Dr. Eduard Pedraza. She may want to consider weighted blanket, there are some that are we woven in tencel to prevent overheating. Encouraged patient to increase physical exercise of her preference, and advised to schedule this into her routine to improve consistency. Previously tried: Gabapentin was ineffective. ? For overall headache management: Discussed importance of good self-care, including but not limited to maintaining a healthy diet, adequate fluid intake, adequate sleep, and engaging in regular physical activity. Track headaches. May try nedi-pot (ceramic pot) saline rinses. ? For acute headache treatment: OTC Tylenol 650-1,000mg every 4-6 hours, Ibuprofen (liquid gels) 600mg every 6 hours, or Naproxen (liquid gels) 440mg q 12 hrs prn. Previous acute migraine medication trials: Sumatriptan- ineffective, Fioricet- ineffective. Rizatriptan- ineffective. Nurtec and Ubrelvy- ineffective. eletriptan- ineffective. Acute migraine medication contraindications: None at this time Future considerations: Sumatriptan inj ? For headache prevention medication: Continue Magnesium 400mg qhs Previous migraine prevention medication trials: Topiramate high dose- ineffective. Verapamil- ineffective. Tizanidine- did not help BAIRD. Venlafaxine- did not help (stopped 2 months ago- headaches did not increase) . Botox x's 3 sessions- ineffective. Propranolol Er 60mg- ineffective after 2 months. Aimovig- ineffective Migraine prevention medication contraindications: None at this time ? Will follow-up upon review of above and patient to follow-up in clinic in 6 months or sooner prn. Orders: Orders TSH reflex Free T4 Today G43.009 - Migraine without aura, not intractable, without status migrainosus, G47.19 - Other hypersomnia, Z86.2 - Personal history of diseases of the blood and blood-forming organs and certain disorders involving the immune mechanism Vitamin B12 and Folate Today G43.009 - Migraine without aura, not intractable, without status migrainosus, G47.19 - Other hypersomnia, Z86.2 - Personal history of diseases of the blood and blood-forming organs and certain disorders i nvolving the immune mechanism Ferritin Today G43.009 - Migraine without aura, not intractable, without status migrainosus, G47.19 - Other hypersomnia, Z86.2 - Personal history of diseases of the blood and blood-forming organs and certain disorders involving the immune mechanism Complete Blood Count Auto Diff Today G43.009 - Migraine without aura, not intractable, without status migrainosus, G47.19 - Other hypersomnia, Z86.2 - Personal history of diseases of the blood and blood-forming organs and certain disorders involving the immune mechanism Magnesium Today G43.009 - Migraine without aura, not intractable, without status migrainosus, G47.19 - Other hypersomnia, Z86.2 - Personal history of diseases of the blood and blood-forming organs and certain disorders involving the immune mechanism IRON PROFILE Today D64.9 - Anemia, unspecified, G43.009 - Migraine without aura, not intractable, without status migrainosus, G47.19 - Other hypersomnia, Z86.2 - Personal history of diseases of the blood and blood-forming organs and certain disorders involving the immune mechanism Comprehensive Met. Panel Today E78.5 - Hyperlipidemia, unspecified, G43.009 - Migraine without aura, not intractable, without status migrainosus, R53.83 - Other fatigue Coding Level of Care Code Est Pt Level 3 (37214) Diagnoses Snoring R06.83 Excessive daytime sleepiness G47.19 Sleep difficulties G47.9 Migraine without aura and without status migrainosus, not intractable G43.009 Intractability: not intractable Status migrainosus presence: without status migrainosus Fatigue R53.83
[2024-12-15 08:32] VITALS: BP 110/70; PULSE 67; O2SAT 97; BMI 36.5
== END 2024-12-15 09:30 | disposition home or self-care (01) ==
LOC: HO.HSMS 08:27
PROVIDERS: PCP Family Medicine; Visit Provider Nurse Practitioner Family
DX: R06.83 Snoring (principal); G47.19 Other hypersomnia; G47.9 Sleep disorder, unspecified; G43.009 Migraine without aura, not intractable, without status migrainosus; R53.83 Other fatigue
CPT/HCPCS: 99213